=== PATIENT | female | born 1985 | race American Indian/Alaskan Native ===

== ENCOUNTER 2016-03-03 10:37 | Day surgery (SDC) | payer MEDICAID ==
[~2016-03-03 10:37] MED LIST: LACTATED RINGERS 1,000 ML IV SCH; PEPCID PO NR; VERSED IV NR
--- NOTE | 2016-03-03 11:18 | Anesthesia Consultation ---
Anesthesia Consult and Med Hx - Airway Anesthetic Teeth Evaluation: Good ROM Head & Neck: Adequate Mental/Hyoid Distance: Adequate Mallampati Class: Class II Intubation Access Assessment: Good - Pulmonary Exam CTA: Yes - Cardiac Exam Cardiac Exam: RRR - Pre-Operative Health Status ASA Pre-Surgery Classification: ASA2 Proposed Anesthetic Plan: General - Pulmonary Hx Smoking: Yes - Cardiovascular System Hx Heart Murmur: Yes - Central Nervous System Hx Psychiatric Problems: No - Other Systems Hx Alcohol Use: No Hx Substance Use: Yes (marijuana last used 12/2015) Hx Cancer: No - Additional Comments Anesthesia Medical History Comments: NAC
[2016-03-03] MEDS ORDERED: ZOFRAN IV PRN (11:19)
[2016-03-03] MEDS ORDERED: DILAUDID IV PRN (11:19)
[2016-03-03] MEDS ORDERED: DEMEROL IV PRN (11:19)
--- NOTE | 2016-03-03 11:19 | Anesthesia Day of Surgery ---
Anesthesia Day of Surgery - Day of Surgery Patient Examined: Yes Patient H&P Reviewed: Yes Patient is NPO: Yes
--- NOTE | 2016-03-03 11:34 | Short Stay Summary ---
Short Stay Documentation Date of service: 03/03/16 Narrative H&P: C/O: Vaginal bleeding 30-year-old A3 present for the above complaints, claims to have been bleeding 2 weeks, bleeding now reduced to spotting and dark brownish blood. Patient apparently had an embryonic in late January, follow-up ultrasound was negative for pole. HCG quants also falling. A long discussion with patient about above, offered and recommended conservative care. Patient adamantly declines, she wants D&C-" tired of bleeding" Gynhx:Regular cycles Medhx: ?Oral history of irregular heartbeats Sughx: Knee surgery in 2016 Obhx; # 3 (last in 05/2101) Meds:None All:NKDA Fshx:Single, smoker ROS: No cramping, no fever or chills Exam unremmarkable A: Missed AB P: -Will proceed with suction D&C -Discussed risks of surgery in detail including perforation, infection, bleeding possible need for hysterectomy - History Past Medical History: arrhythmia, other (See HPI) Past Surgical History: Other (Knee surgery) Social history: single, smoking, full code, no alcohol abuse, no prescription drug abuse, no IV drug use - Allergies and Medications Current Medications: Allergies No Known Allergies Allergy (Verified 04/17/14 18:05) Home Medications Medication Instructions Recorded Confirmed Last Taken Type No Known Home Medications [No 03/02/16 03/02/16 Unknown History Reported Home Medications] Active Medications Famotidine (Pepcid) 20 mg PO PREOP NR Stop: 03/03/16 23:59 Hydromorphone HCl (Dilaudid) 0.5 mg IV Q10MIN PRN PRN Reason: Pain , Severe (7-10) Stop: 03/06/16 11:20 Lactated Ringer's (Lactated Ringers) 1,000 mls @ 75 mls/hr IV DIRECT MIGUELANGEL Doxycycline Hyclate 100 mg/ (Sodium Chloride) 250 mls @ 250 mls/hr IV Q12HR MIGUELANGEL PRN Reason: Protocol Meperidine HCl (Demerol) 25 mg IV ONCE PRN PRN Reason: Shivering Stop: 03/03/16 11:20 Midazolam HCl (Versed) 2 mg IV PREOP NR Stop: 03/03/16 23:59 Ondansetron HCl (Zofran) 4 mg IV ONCE PRN PRN Reason: Nausea And Vomiting Stop: 03/03/16 11:20 - Physical exam General appearance: no acute distress, obese Lungs: Clear to auscultation Heart: Regular rate, Normal S1, Normal S2 Gastrointestinal: normal, no tenderness, no distended, no masses, no guarding, obese Extremities: no ischemia - Brief post op/procedure progress note Date of procedure: 03/03/16 Pre-op diagnosis: Missed AB Post-op diagnosis: same Procedure: Suction D&C Anesthesia: GETA Findings: Normal parous os, uterus sounded to 8 cm Surgeon: SISSY BONILLA Estimated blood loss: 50-100ml Pathology: list (Products of conception) Specimen disposition: to lab Condition: stable - Hospital course Hospital course: Uncomplicated postoperative course, discharged from PACU in stable condition - Disposition Condition at discharge: Good Disposition: DC/TX INPT REHAB FACILITY - Discharge Diagnoses (1) S/P dilation and curettage Status: Acute (2) Missed Status: Acute Short Stay Discharge Plan Activity: no driving until cleared by PCP (No driving on narcotics), other ( Pelvic rest x 2 weeks) Weight Bearing Status: Weight Bear as Tolerated Diet: regular Follow up with: FORTUNATO RIVER MD [Primary Care Provider] - 7 Days SISSY BONILLA MD [Staff Physician] - 7 Days
[2016-03-03] MEDS ORDERED: DIPRIVAN 10 MG/ML IV ONE (11:49)
[2016-03-03] MEDS ORDERED: DECADRON ONE (11:50)
[2016-03-03] MEDS ORDERED: XYLOCAINE MPF 2% ONE (11:50)
[2016-03-03] MEDS ORDERED: DILAUDID ONE (11:50)
[2016-03-03] MEDS ORDERED: ZOFRAN ONE (11:50)
[2016-03-03 11:51] LABS: Hematocrit 37.7 % (30.3-42.9); Hemoglobin 12.2 gm/dl (10.1-14.3)
[2016-03-03] MEDS ORDERED: DOXYCYCLINE HYCLATE 100 MG in NACL 0.9% 250ML 250 ML IV SCH (13:00)
[2016-03-03] MEDS ORDERED: CYTOTEC VG ONE (13:01)
[2016-03-03] MEDS ORDERED: NACL 0.9% IR ONE (13:01)
[2016-03-03] MEDS ORDERED: NORCO 5/325 PO PRN ×2 (13:14→14:43)
[2016-03-03] MEDS ORDERED: TYLENOL PO PRN (13:14)
[2016-03-03] MEDS ORDERED: MOTRIN PO PRN (13:14)
--- NOTE | 2016-03-03 13:20 | Operative Report ---
Operative Report Operative Report: DATE: 03/03/2016 PREOPERATIVE DIAGNOSIS: Missed AB at ~ 8 weeks POSTOP DIAGNOSIS: Same plus uterus measures 8 weeks NAME OF PROCEDURE: Suction D&C SURGEON: SISSY BONILLA MD SHEET ROLLER OPERATOR: None ANESTHESIA: LMA EBL: Minimal PATHOLOGY SPECIMEN: Products of conception URINE OUTPUT: 100 mL prior to procedure FINDINGS: Parous OS, uterus measures 8 cm DESCRIPTION OF PROCEDURE: Procedure in detail patient taken to the operating room where she was prepped and draped in sterile fashion placed in dorsolithotomy position. A speculum was placed in the vagina and single-tooth was used to grab the anterior lip of the uterus, uterus was serially dilated to a max 31 dilators. Uterus was then sounded to 8 cm. A size 8 suction curet was then advanced into the patient's uterus gently and in no rotary manner the uterus was cleared of all products of conception. Using a sharp curet, all 4 quadrants were sampled with remnant tissue noted. All instruments were then withdrawn to the patient's vagina, patient received 800 g of Cytotec DE and 100 mg doxycycline preop. She tolerated the procedure well and instrument counts were correct 2 she is transferred to PACU in stable condition thank you
--- NOTE | 2016-03-03 13:43 | Post Anesthesia Evaluation ---
- Post Anesthesia Evaluation Patient Participated: Yes Airway Patent: Yes Stable Respiratory Function: Yes Nausea/Vomiting: No Temp > 96.8F: Yes Pain Manageable: Yes Adequeate Hydration: Yes Anesthesia Complications: No Block Receding Appropriately: Not Applicable Patient on Ventilator: No
[2016-03-03 15:13] VITALS: BP 105/55
--- NOTE | 2016-03-03 15:37 | Event Note ---
Date: 03/03/16 Called to the PACU to see patient, she declined ibuprofen wants something stronger. Per patient, she has back issues and has been on Percocet. Previously did not correlate this history. I advised that ibuprofen is the best medication for her procedure, we'll provide her with 10 tablets of hydrocortisone only.
== END 2016-03-03 15:45 | disposition home or self-care (01) ==
LOC: OR 10:37
PROVIDERS: ATTEND Obstetrics & Gynecology Gynecology
DX: O02.1 Missed abortion (principal); F17.210 Nicotine dependence, cigarettes, uncomplicated; F12.90 Cannabis use, unspecified, uncomplicated; Z98.890 Other specified postprocedural states; Z3A.08 8 weeks gestation of pregnancy
CPT/HCPCS: 36415; 59820; 85014; 85018; 86850; 86900; 86901; 88305; J1100; J1170; J2250; J2405; J2590; J2704; J7050; J7120

== ENCOUNTER 2016-04-23 11:58 | Emergency (ER) | payer MEDICAID ==
--- NOTE | 2016-04-23 16:42 | Emergency Department Report ---
Entered by SERGIO PARIS, acting as scribe for SHERRI HYMAN PA. - General Chief Complaint: Upper Respiratory Infection Stated Complaint: SORE THROAT/BACK/LEG PAIN Time Seen by Provider: 04/23/16 14:34 Source: patient Mode of arrival: Ambulatory Limitations: No Limitations - History of Present Illness Initial Comments: 30 year old female presents to the ED for evaluation of sore throat for 3 days. She also reports associated body aches. Flu immunization are not up to date. Patient has sick contact with similar symptoms within the home. Denies N/V, chest pain, and shortness of breath. MD Complaint: sore throat Onset/Timin -: days(s) Severity: moderate Consistency: constant Improves With: nothing Context: sick contacts (daughter has sore throat and cough) Associated Symptoms: myalgias, sore throat. denies: fever, chills, cough, chest pain, nausea, vomiting, diarrhea Treatments Prior to Arrival: "cold medicine" - Related Data Home Medications Medication Instructions Recorded Confirmed Last Taken Naproxen [Naproxen] 500 mg PO BID 03/03/16 03/03/16 03/02/16 07:00 Previous Rx's Medication Instructions Recorded Last Taken Type HYDROcodone/APAP 5-325 [[place] 1 each PO Q6HR PRN #10 tablet 03/03/16 Unknown Rx 5/325] Ibuprofen [Motrin 600 MG tab] 600 mg PO Q8H PRN #30 tablet 03/03/16 Unknown Rx Multivitamin with Iron 1 each PO DAILY #30 tablet 03/03/16 Unknown Rx [Multivitamins with Iron] Amoxicillin [Amoxicillin TAB] 875 mg PO BID #20 tablet 04/23/16 Unknown Rx Naproxen [Naprosyn] 500 mg PO BID #30 tablet 04/23/16 Unknown Rx Allergies Allergy/AdvReac Type Severity Reaction Status Date / Time No Known Allergies Allergy Verified 04/17/14 18:05 ED Past Medical Hx - Past Medical History Hx Headaches / Migraines: Yes Hx HIV: No Additional medical history: vaginal delivery x 4 with one stillborn - Surgical History Additional Surgical History: rt knee surgery 08/29/15 - Social History Smoking Status: Current Every Day Smoker Substance Use Type: Marijuana - Medications Home Medications: Home Medications Medication Instructions Recorded Confirmed Last Taken Type HYDROcodone/APAP 5-325 [[place] 1 each PO Q6HR PRN #10 tablet 03/03/16 Unknown Rx 5/325] Ibuprofen [Motrin 600 MG tab] 600 mg PO Q8H PRN #30 tablet 03/03/16 Unknown Rx Multivitamin with Iron 1 each PO DAILY #30 tablet 03/03/16 Unknown Rx [Multivitamins with Iron] Naproxen [Naproxen] 500 mg PO BID 03/03/16 03/03/16 03/02/16 07:00 History Amoxicillin [Amoxicillin TAB] 875 mg PO BID #20 tablet 04/23/16 Unknown Rx Naproxen [Naprosyn] 500 mg PO BID #30 tablet 04/23/16 Unknown Rx ED Physical Exam - General Limitations: No Limitations General appearance: other (The patient is well-developed and well-nourished. Patient is in NAD.) - Head Head exam: Present: atraumatic, normocephalic - ENT ENT exam: Present: other (minimal nasal congestion) - Expanded ENT Exam Expanded Ear exam: Present: normal external inspection, other (External auditory canals and tympanic membranes clear; hearing grossly intact.) Throat exam: Positive: tonsillar erythema, tonsillomegaly, tonsillar exudate - Neck Neck exam: Present: normal inspection, full ROM. Absent: tenderness, lymphadenopathy - Respiratory Respiratory exam: Present: normal lung sounds bilaterally. Absent: respiratory distress, wheezes - Cardiovascular Cardiovascular Exam: Present: regular rate, normal rhythm - GI/Abdominal GI/Abdominal exam: Present: soft, normal bowel sounds. Absent: distended, tenderness, guarding, rebound - Neurological Exam Neurological exam: Present: alert, oriented X3 - Psychiatric Psychiatric exam: Present: normal affect, normal mood - Skin Skin exam: Present: warm, dry, intact ED Course Vital Signs 04/23/16 12:22 Temperature 98.2 F Pulse Rate 88 Respiratory 18 Rate Blood Pressure 113/72 O2 Sat by Pulse 96 Oximetry ED Medical Decision Making - Lab Data Vital Signs 04/23/16 12:22 Temperature 98.2 F Pulse Rate 88 Respiratory 18 Rate Blood Pressure 113/72 O2 Sat by Pulse 96 Oximetry - Medical Decision Making 30 year old female presents to the ED c/o sore throat and body aches for 3 days. Her rapid strep test is positive. Rapid flu test negative. Patient is in no acute distress at this time. She will be discharged home and is encouraged to follow up with a primary care provider. She will be sent home on amoxicillin, Naprosyn and is encouraged to return to the emergency room for any worsening symptoms. ED Disposition Clinical Impression: Pharyngitis Qualifiers: Pharyngitis/tonsillitis etiology: streptococcus Qualified Code(s): J02.0 - Streptococcal pharyngitis Disposition: DISCHARGED TO HOME OR SELFCARE Is pt being admited?: No Does the pt Need Aspirin: No Condition: Stable Instructions: Strep Throat (ED) Additional Instructions: Follow with primary care provider. Return to the emergency department if symptoms worsen. Prescriptions: Amoxicillin [Amoxicillin TAB] 875 mg PO BID #20 tablet Naproxen [Naprosyn] 500 mg PO BID #30 tablet Referrals: PRIMARY CAREMD [Primary Care Provider] - 3-5 Days [facility] [Outside] - 3-5 Days SHANNAN YIP MD [Staff Physician] - 3-5 Days Forms: Work/School Release Form(ED), Accompanied Note Time of Disposition: 16:39 This documentation as recorded by the RAINA foley REBEKAH,accurately reflects the service I personally performed and the decisions made by BOOGIE rodarte NATASHA, PA.
[2016-04-23 17:32] VITALS: BP 114/67
== END 2016-04-23 17:33 | disposition home or self-care (01) ==
LOC: ED 11:58
DX: J02.0 Streptococcal pharyngitis (principal); G43.909 Migraine, unspecified, not intractable, without status migrainosus; F17.200 Nicotine dependence, unspecified, uncomplicated; F12.10 Cannabis abuse, uncomplicated
CPT/HCPCS: 87400; 87430; 99282

== ENCOUNTER 2016-07-08 15:29 | Emergency (ER) | payer MEDICAID ==
[2016-07-08 16:41] LABS: Basophils % (Auto) 0.3 % (0.0-1.8); Eosinophils % (Auto) 1.6 % (0.0-4.3); Hemoglobin 11.8 gm/dl (10.1-14.3); Mean Corpuscular HGB Conc 33 % (30-34); Mean Corpuscular Hemoglobin 27 pg (28-32); Mean Corpuscular Volume 84 fl (79-97); Platelet Count 244 K/mm3 (140-440); Red Blood Count 4.31 M/mm3 (3.65-5.03); Red Cell Distribution Width 16.5 % (13.2-15.2); White Blood Count 9.6 K/mm3 (4.5-11.0)
--- NOTE | 2016-07-08 19:25 | Ultrasound Report ---
FINAL REPORT EXAM: US OB TRANSVAGINAL HISTORY: bleeding TECHNIQUE: Ultrasound obstetrical transvaginal PRIORS: None. FINDINGS: There is gestational sac present within the uterus. There is a pole present. cardiac activity is identified with heart rate of 169 beats per minute. P[place]oy-rump length is 4.85 centimeters corresponding to estimated gestational age of 11 weeks 4 days with estimated date of delivery January 23, 2017 No evidence for subchorionic hemorrhage. No free-fluid is identified The ovaries are normal in size and echogenicity IMPRESSION: Single live intrauterine gestation estimated at 11 weeks 4 days
--- NOTE | 2016-07-08 19:29 | Ultrasound Report ---
FINAL REPORT EXAM: US OB \T\lt; = 14 WEEKS FETUS HISTORY: bleeding TECHNIQUE: Ultrasound obstetrical transabdominal PRIORS: Correlated with today's transvaginal exam FINDINGS: There is gestational sac within the uterus. pole identified with crown-rump length 4.8 centimeters corresponding to estimated gestational age of 11 weeks 4 days cardiac activity present with heart rate of 169 beats per minute Ovaries demonstrate normal size and echogenicity. IMPRESSION: Single live intrauterine gestation estimated at 11 weeks 4 days
[2016-07-09] MEDS ORDERED: TYLENOL PO ONE (04:55)
--- NOTE | 2016-07-09 04:58 | Emergency Department Report ---
HPI - General Chief Complaint: Vaginal Bleeding Time Seen by Provider: 07/09/16 04:09 - HPI HPI: The patient is a 30-year-old female , EGA 11 weeks, whom presents for evaluation of back pain and abdominal pain. The patient states that she fell 2 days ago secondary to tripping and struck her upper back on the ground. She states that since she has experienced left upper back pain, 5/10 in severity, aching and sore in quality, and exacerbated with movement of the upper back. The patient also complains of bilateral lower abdominal pain for the past one day, mild in severity, cramping in quality, constant since onset, and associated with vaginal bleeding, improved since onset, currently spotting. The patient denies fever, chills, night sweats, chest pain, dyspnea, paresthesia or motor deficit in the arms or legs, diarrhea, blood in the stool, dark tarry stool, dysuria, hematuria, flank pain, vaginal discharge . ED Past Medical Hx - Past Medical History Previous Medical History?: Yes Hx Headaches / Migraines: Yes Hx HIV: No Additional medical history: vaginal delivery x 4 with one stillborn - Surgical History Past Surgical History?: Yes Additional Surgical History: rt knee surgery 08/29/15 - Social History Smoking Status: Current Every Day Smoker Substance Use Type: None - Medications Home Medications: Home Medications Medication Instructions Recorded Confirmed Last Taken Type HYDROcodone/APAP 5-325 [[place] 1 each PO Q6HR PRN #10 tablet 03/03/16 Unknown Rx 5/325] Ibuprofen [Motrin 600 MG tab] 600 mg PO Q8H PRN #30 tablet 03/03/16 Unknown Rx Multivitamin with Iron 1 each PO DAILY #30 tablet 03/03/16 Unknown Rx [Multivitamins with Iron] Naproxen [Naproxen] 500 mg PO BID 03/03/16 03/03/16 03/02/16 07:00 History Amoxicillin [Amoxicillin TAB] 875 mg PO BID #20 tablet 04/23/16 Unknown Rx Naproxen [Naprosyn] 500 mg PO BID #30 tablet 04/23/16 Unknown Rx Acetaminophen/Codeine [Tylenol #3] 1 tab PO Q6H PRN #7 tab 07/09/16 Unknown Rx Pnv95/Ferrous Fumarate/FA 1 each PO QDAY #31 tablet 07/09/16 Unknown Rx [ Vitamin Tablet] ED Review of Systems ROS: Stated complaint: 12 WK PREG /FALL/VAG BLEEDING / Other details as noted in HPI Constitutional: denies: fever ENT: denies: throat or neck pain Respiratory: denies: cough, shortness of breath Cardiovascular: denies: chest pain Endocrine: denies unexplained weight loss or gain Gastrointestinal: reports abdominal pain, nausea Genitourinary: denies: dysuria Musculoskeletal: reports back pain denies: leg swelling Skin: denies: rash Neurological: denies: headache Hematological/Lymphatic: denies: easy bleeding or easy bruising Psych: denies sadness or hopelessness Physical Exam - Physical Exam Vital Signs: Vital Signs 07/08/16 07/09/16 16:07 00:57 Temperature 98.4 F 98.3 F Pulse Rate 78 70 Respiratory 18 20 Rate Blood Pressure 127/77 113/72 O2 Sat by Pulse 100 100 Oximetry Physical Exam: General: well-nourished, well-developed, no acute distress Head: Normocephalic, atraumatic Eyes: normal sclera ENT: Mucous membranes are pink and moist Neck: trachea midline, neck supple, No neck stiffness, no cervical adenopathy Respiratory: Breath sounds equal bilaterally, no wheezing, rales, or rhonchi Cardio: S1 and S2 present, no murmurs, rubs, gallops, capillary refill is brisk Abdomen: Normoactive bowel sounds, soft abdomen, suprapubic and bilateral lower quadrant tenderness to palpation present, no rigidity, no guarding or rebound tenderness Chest WALL/Back: left upper thoracic paraspinal musculature and caudal medial trapezius tenderness to palpation present, no midline cervical or thoracic or lumbar spinous tenderness to palpation, no spinous step-off or obvious deformity , no sensation motor deficit in the arms or legs bilaterally, reflexes 2+ symmetric on DTR testing of the arms and legs bilaterally, no CVA tenderness with percussion Musc: No pitting edema Skin: No rash Neuro: no facial drooping, normal speech Psych: Normal affect ED Course Vital Signs 07/08/16 07/09/16 16:07 00:57 Temperature 98.4 F 98.3 F Pulse Rate 78 70 Respiratory 18 20 Rate Blood Pressure 127/77 113/72 O2 Sat by Pulse 100 100 Oximetry ED Medical Decision Making - Lab Data Result diagrams: 05/31/17 16:28 - Medical Decision Making The patient was seen and examined by myself. The patient is placed on a cardiac cath tech and continuous pulse ox. On initial evaluation, the patient was found to be in no distress. Evaluation orders were placed. The patient is given a tablet of Tylenol for her pain. Lab results revealed positive beta hCG and Rh+ blood type. Ultrasound of the pelvis reveals live intrauterine of 11 weeks EGA. The patient was reevaluated and reported that their symptoms were markedly improved. The patient is stable for discharge with outpatient follow-up. The patient is given follow-up and return instructions. The patient expressed understanding and agreed with the plan. The patient is discharged in stable condition. Critical care attestation.: If time is entered above; I have spent that time in minutes in the direct care of this critically ill patient, excluding procedure time. ED Disposition Clinical Impression: Threatened miscarriage in early , Abdominal pain, acute, bilateral lower quadrant, Acute upper back pain Disposition: DISCHARGED TO HOME OR SELFCARE Is pt being admited?: No Does the pt Need Aspirin: No Condition: Stable Instructions: Threatened Miscarriage (ED), Abdominal Pain in (ED), Back Pain (ED) Prescriptions: Acetaminophen/Codeine [Tylenol #3] 1 tab PO Q6H PRN #7 tab PRN Reason: Pain Pnv95/Ferrous Fumarate/FA [ Vitamin Tablet] 1 each PO QDAY #31 tablet Referrals: [facility] [Provider Group] - 3-5 Days Time of Disposition: 04:55
[2016-07-09 06:01] VITALS: BP 123/88
== END 2016-07-09 06:00 | disposition home or self-care (01) ==
LOC: ED 15:29
DX: O20.0 Threatened abortion (principal); R10.30 Lower abdominal pain, unspecified; M54.6 Pain in thoracic spine; G43.909 Migraine, unspecified, not intractable, without status migrainosus; O99.331 Smoking (tobacco) complicating pregnancy, first trimester; Z3A.11 11 weeks gestation of pregnancy
CPT/HCPCS: 36415; 76801; 76817; 84702; 85025; 86850; 86900; 86901; 99284

== ENCOUNTER 2016-10-05 16:21 | Outpatient (CLI) | payer OTHER ==
[2016-10-05 17:28] VITALS: BP 91/38
[2016-10-05 17:37] LABS: Bacteria,Urine 1+ /HPF (Negative); Bilirubin,Urine NEG (Negative); Blood,Urine NEG (Negative); Ketones,Urine 20 mg/dL (Negative); Leukocyte Esterase,Urine NEG (Negative); Mucus,Urine 2+ /HPF; Nitrite,Urine NEG (Negative); Urobilinogen,Urine < 2.0 mg/dL (<2.0); WBC,Urine < 1.0 /HPF (0.0-6.0)
== END 2016-10-05 17:58 | disposition home or self-care (01) ==
LOC: TRG 16:21
PROVIDERS: ATTEND Obstetrics & Gynecology Gynecology
DX: O47.02 False labor before 37 completed weeks of gestation, second trimester (principal); Z3A.24 24 weeks gestation of pregnancy
CPT/HCPCS: 59025; 81001

== ENCOUNTER 2016-11-30 17:34 | Outpatient (CLI) | payer OTHER ==
[2016-11-30 18:43] LABS: Bacteria,Urine 1+ /HPF (Negative); Bilirubin,Urine NEG (Negative); Blood,Urine NEG (Negative); Ketones,Urine TR mg/dL (Negative); Leukocyte Esterase,Urine LG (Negative); Mucus,Urine FEW /HPF; Nitrite,Urine NEG (Negative); Protein,Urine <15 mg/dL mg/dL (Negative)
[2016-11-30 18:54] VITALS: BP 124/74
== END 2016-11-30 19:00 | disposition home or self-care (01) ==
LOC: TRG 17:34
PROVIDERS: ATTEND Obstetrics & Gynecology
DX: O47.03 False labor before 37 completed weeks of gestation, third trimester (principal); Z3A.32 32 weeks gestation of pregnancy
CPT/HCPCS: 59025; 81001

== ENCOUNTER 2016-12-28 16:58 | Outpatient (CLI) | payer OTHER ==
[2016-12-28] MEDS ORDERED: LACTATED RINGERS 1,000 ML IV ONE (17:05)
[2016-12-28 17:22] VITALS: BP 112/63
[2016-12-28 17:41] LABS: Bacteria,Urine 1+ /HPF (Negative); Mucus,Urine 2+ /HPF
[2016-12-28 17:42] LABS: Bilirubin,Urine NEG (Negative); Blood,Urine SM (Negative); Ketones,Urine NEG (Negative); Leukocyte Esterase,Urine MOD (Negative); Nitrite,Urine NEG (Negative); Protein,Urine <15 mg/dL mg/dL (Negative); Urobilinogen,Urine < 2.0 mg/dL (<2.0)
[2016-12-29] MEDS ORDERED: LACTATED RINGERS 1,000 ML IV SCH (23:45)
[2016-12-29] MEDS ORDERED: ceFAZolin 2 GM in NACL 0.9% 100 ML IV ONE (23:45)
== END 2016-12-28 18:10 | disposition home or self-care (01) ==
LOC: TRG 16:58
PROVIDERS: ATTEND Obstetrics & Gynecology
DX: O47.03 False labor before 37 completed weeks of gestation, third trimester (principal); Z87.891 Personal history of nicotine dependence; Z3A.36 36 weeks gestation of pregnancy
CPT/HCPCS: 81001; J0690

== ENCOUNTER 2016-12-29 22:41 | Outpatient (CLI) | payer OTHER ==
[2016-12-29] MEDS ORDERED: LACTATED RINGERS 500 ML IV ONE (22:44)
[2016-12-29 22:57] VITALS: BP 112/71
[2016-12-29] MEDS ORDERED: LACTATED RINGERS 1,000 ML IV ONE (22:59)
[2016-12-29] MEDS ORDERED: ceFAZolin 2 GM in NACL 0.9% 100 ML IV ONE (23:52)
[2016-12-30] MEDS ORDERED: ceFAZolin 2 GM in NACL 0.9% 100 ML IV ONE (00:10)
== END 2016-12-30 00:40 | disposition home or self-care (01) ==
LOC: TRG 22:41
PROVIDERS: ATTEND Obstetrics & Gynecology
CPT/HCPCS: 59025; 96360 ×2; 96365 ×2; J7120

== ENCOUNTER 2017-04-04 08:29 | Emergency (ER) | payer OTHER ==
[2017-04-04 08:47] VITALS: BP 121/57
--- NOTE | 2017-04-04 10:39 | Emergency Department Report ---
ED Back Pain/Injury HPI - General Chief Complaint: Back Pain/Injury Stated Complaint: BACK PAIN Time Seen by Provider: 04/04/17 10:34 Source: patient Limitations: No Limitations - History of Present Illness Initial Comments: This is a 31-year-old female nontoxic, well nourished in appearance, no acute signs of distress presents to the ED with c/o of back pain 1 day. Patient stated she was at work picking up heavy box and developed a sharp pain that increased over night. Patient denies any trauma to the region. Patient denies any bladder or bowel instability. Patient denies any dysuria, polyuria or hematuria. Patient denies any flank pain. Patient described pain as aching without radiation. Patient denies any chest pain, shortness of breath, fever, chills, nausea, vomiting, headache or stiff neck. He denies any allergies. Past medical history includes chronic headaches. MD Complaint: back pain -: days(s) (1) Similar Symptoms Previously: No Place: work Radiation: none Severity: mild Severity scale (0 -10): 8 Quality: aching Consistency: constant Improves With: immobilization, supine Worsens With: movement Associated Symptoms: denies other symptoms. denies: confusion, weakness, chest pain, numbness, difficulty walking, cough, difficulty urinating, diaphoresis, incontinence, fever/chills, constipation, headaches, abdominal pain, loss of appetite, malaise, nausea/vomiting, rash, seizure, shortness of breath, syncope - Related Data Previous Rx's Medication Instructions Recorded Last Taken Type Pnv No.95/Ferrous Fum/Folic AC 1 each PO QDAY #31 tablet 07/09/16 2 Days Ago Rx [ Vitamin Tablet] ~12/26/16 1 Cyclobenzaprine [Flexeril] 10 mg PO QHS PRN #7 tablet 04/04/17 Unknown Rx Ibuprofen [Motrin] 600 mg PO Q8H PRN #30 tablet 04/04/17 Unknown Rx Allergies Allergy/AdvReac Type Severity Reaction Status Date / Time No Known Allergies Allergy Verified 04/04/17 08:44 ED Review of Systems ROS: Stated complaint: BACK PAIN Other details as noted in HPI Constitutional: denies: chills, fever Eyes: denies: eye pain, eye discharge, vision change ENT: denies: ear pain, throat pain Respiratory: denies: cough, shortness of breath, wheezing Cardiovascular: denies: chest pain, palpitations Endocrine: no symptoms reported Gastrointestinal: denies: abdominal pain, nausea, diarrhea Genitourinary: denies: urgency, dysuria, discharge Musculoskeletal: back pain. denies: joint swelling, arthralgia Skin: denies: rash, lesions Neurological: denies: headache, weakness, paresthesias Psychiatric: denies: anxiety, depression Hematological/Lymphatic: denies: easy bleeding, easy bruising ED Past Medical Hx - Past Medical History Hx Hypertension: No Hx Diabetes: No Hx Deep Vein Thrombosis: No Hx Renal Disease: No Hx Sickle Cell Disease: No Hx Headaches / Migraines: Yes Hx Seizures: No Hx Asthma: No Hx HIV: No Additional medical history: vaginal delivery x 4 with one stillborn - Surgical History Additional Surgical History: rt knee surgery 08/29/15 - Social History Smoking Status: Current Every Day Smoker Substance Use Type: None - Medications Home Medications: Home Medications Medication Instructions Recorded Confirmed Last Taken Type Pnv No.95/Ferrous Fum/Folic AC 1 each PO QDAY #31 tablet 07/09/16 12/28/16 2 Days Ago Rx [ Vitamin Tablet] ~12/26/16 1 Cyclobenzaprine [Flexeril] 10 mg PO QHS PRN #7 tablet 04/04/17 Unknown Rx Ibuprofen [Motrin] 600 mg PO Q8H PRN #30 tablet 04/04/17 Unknown Rx ED Physical Exam - General Limitations: No Limitations General appearance: alert, in no apparent distress - Head Head exam: Present: atraumatic, normocephalic - Eye Eye exam: Present: normal appearance, PERRL, EOMI Pupils: Present: normal accommodation - ENT ENT exam: Present: mucous membranes moist - Neck Neck exam: Present: normal inspection - Respiratory Respiratory exam: Present: normal lung sounds bilaterally. Absent: respiratory distress, wheezes, rales, rhonchi, stridor, chest wall tenderness, accessory muscle use, decreased breath sounds, prolonged expiratory - Cardiovascular Cardiovascular Exam: Present: regular rate, normal rhythm, normal heart sounds. Absent: bradycardia, tachycardia, irregular rhythm, systolic murmur, diastolic murmur, rubs, gallop - GI/Abdominal GI/Abdominal exam: Present: soft, normal bowel sounds. Absent: distended, tenderness, guarding, rebound, rigid, diminished bowel sounds - Extremities Exam Extremities exam: Present: normal inspection, full ROM, normal capillary refill - Back Exam Back exam: Present: normal inspection, full ROM, paraspinal tenderness (left throacic region). Absent: tenderness, CVA tenderness (R), CVA tenderness (L), muscle spasm, vertebral tenderness, rash noted - Expanded Back Exam Expanded Back exam: Absent: saddle anesthesia Back exam: Negative Straight Leg Raising: Left, Right - Neurological Exam Neurological exam: Present: alert, oriented X3, CN II-XII intact, normal gait, reflexes normal - Psychiatric Psychiatric exam: Present: normal affect, normal mood - Skin Skin exam: Present: warm, dry, intact, normal color. Absent: rash ED Course Vital Signs 04/04/17 08:44 Temperature 98.9 F Pulse Rate 67 Respiratory 18 Rate Blood Pressure 121/57 O2 Sat by Pulse 100 Oximetry - Reevaluation(s) Reevaluation #1: 04/04/17 10:39 Patient is speaking in full sentences with no signs of distress noted. ED Medical Decision Making - Medical Decision Making This is a 31-year-old female that presents with muscular back strain. Patient is stable and was examined by me. Patient received Toradol 30 mg IM in the ED which patient stated his symptoms are improving and subsided. Patient is discharged with Motrin and Flexeril and was instructed not to operate any machinery while taking Flexeril due to drowsiness. Patient was also instructed to Follow-up with a primary care doctor in 3-5 days or if symptoms worsen and continue return to emergency room as soon as possible. At time of discharge, the patient does not seem toxic or ill in appearance. No acute signs of distress noted. Patient agrees to discharge treatment plan of care. No further questions noted by the patient. Critical care attestation.: If time is entered above; I have spent that time in minutes in the direct care of this critically ill patient, excluding procedure time. ED Disposition Clinical Impression: Muscle strain of left upper back Qualifiers: Encounter type: initial encounter Qualified Code(s): S29.012A - Strain of muscle and tendon of back wall of thorax, initial encounter Disposition: - TO HOME OR SELFCARE Is pt being admited?: No Does the pt Need Aspirin: No Condition: Stable Instructions: Muscle Strain (ED), Cyclobenzaprine (By mouth), Ibuprofen (By mouth) Additional Instructions: Follow-up with your primary care doctor in 3-5 days or if symptoms worsen such as bladder or bowel stability, chest pain, short of breath, numbness or tingling sensation in extremities, headache, dizziness, visual changes, nausea vomiting, or abdominal pain, return back to emergency room as was possible. Take ibuprofen and Flexeril as prescribed. Do not operate heavy machinery while taking Flexeril due to sedation Prescriptions: Cyclobenzaprine [Flexeril] 10 mg PO QHS PRN #7 tablet PRN Reason: Muscle Spasm Ibuprofen [Motrin] 600 mg PO Q8H PRN #30 tablet PRN Reason: Pain Referrals: PRIMARY CARE, [Primary Care Provider] - 3-5 Days AUSTIN KRISHNAN MD [Staff Physician] - 3-5 Days [facility] [Outside] - [facility] - [facility]-5 Days Forms: Work/School Release Form(ED)
== END 2017-04-04 11:06 | disposition home or self-care (01) ==
LOC: ED 08:29
DX: S29.012A Strain of muscle and tendon of back wall of thorax, initial encounter (principal); F17.200 Nicotine dependence, unspecified, uncomplicated; X58.XXXA Exposure to other specified factors, initial encounter; Y93.89 Activity, other specified; Y92.89 Other specified places as the place of occurrence of the external cause; Y99.8 Other external cause status
CPT/HCPCS: 99282

== ENCOUNTER 2017-04-22 23:00 | Emergency (ER) | payer OTHER ==
[2017-04-22 23:13] VITALS: BP 117/73
[2017-04-23] MEDS ORDERED: MOTRIN PO ONE (03:52)
--- NOTE | 2017-04-23 04:07 | Emergency Department Report ---
- General Chief Complaint: Upper Respiratory Infection Stated Complaint: COLD SX Source: patient Mode of arrival: Ambulatory Limitations: No Limitations - History of Present Illness Initial Comments: 31-year-old -[place] female presents to the emergency room for cold like symptoms and back pain. Patient states that symptoms started last Wednesday. 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 Patient reports that she has a cough no chest pain no shortness of breathing no nausea no vomiting no fever no chills. Patient reports that she took NyQuil. She has taken no pain medication. She has no past medical history currently takes no medication and has no known drug allergies. Patient's primary care provider is [facility] [place]. MD Complaint: cough, sore throat -: days(s) (6), week(s) Severity scale (0 -10): 8 Quality: sharp Consistency: intermittent Improves With: nothing Worsens With: nothing (with cough) Context: sick contacts Associated Symptoms: denies: fever, chills, myalgias, diaphoresis, rhinorrhea, nasal congestion, stiff neck, chest pain, nausea, vomiting, diarrhea, rash - Related Data Previous Rx's Medication Instructions Recorded Last Taken Type Pnv No.95/Ferrous Fum/Folic AC 1 each PO QDAY #31 tablet 07/09/16 2 Days Ago Rx [ Vitamin Tablet] ~12/26/16 1 Cyclobenzaprine [Flexeril] 10 mg PO QHS PRN #7 tablet 04/04/17 Unknown Rx Baclofen [Lioresal] 10 mg PO TID #15 tab 04/23/17 Unknown Rx Ibuprofen [Motrin 600 MG tab] 600 mg PO Q8H PRN #30 tablet 04/23/17 Unknown Rx Ibuprofen [Motrin 800 MG tab] 800 mg PO Q8H PRN #15 tablet 04/23/17 Unknown Rx Allergies Allergy/AdvReac Type Severity Reaction Status Date / Time No Known Allergies Allergy Verified 04/04/17 08:44 ED Review of Systems ROS: Stated complaint: COLD SX Other details as noted in HPI Constitutional: denies: chills, fever Eyes: denies: eye pain, eye discharge, vision change ENT: throat pain. denies: ear pain Respiratory: cough. denies: shortness of breath, wheezing Cardiovascular: denies: chest pain, palpitations Endocrine: no symptoms reported Gastrointestinal: denies: abdominal pain, nausea, diarrhea Genitourinary: denies: urgency, dysuria, discharge Musculoskeletal: back pain. denies: joint swelling, arthralgia Skin: denies: rash, lesions Neurological: denies: headache, weakness, paresthesias Psychiatric: denies: anxiety, depression Hematological/Lymphatic: denies: easy bleeding, easy bruising ED Past Medical Hx - Past Medical History Previous Medical History?: No Hx Hypertension: No Hx Diabetes: No Hx Deep Vein Thrombosis: No Hx Renal Disease: No Hx Sickle Cell Disease: No Hx Headaches / Migraines: Yes Hx Seizures: No Hx Asthma: No Hx HIV: No Additional medical history: vaginal delivery x 4 with one stillborn - Surgical History Past Surgical History?: Yes Additional Surgical History: rt knee surgery 08/29/15 - Social History Smoking Status: Current Every Day Smoker Substance Use Type: None - Medications Home Medications: Home Medications Medication Instructions Recorded Confirmed Last Taken Type Pnv No.95/Ferrous Fum/Folic AC 1 each PO QDAY #31 tablet 07/09/16 12/28/16 2 Days Ago Rx [ Vitamin Tablet] ~12/26/16 1 Cyclobenzaprine [Flexeril] 10 mg PO QHS PRN #7 tablet 04/04/17 Unknown Rx Baclofen [Lioresal] 10 mg PO TID #15 tab 04/23/17 Unknown Rx Ibuprofen [Motrin 600 MG tab] 600 mg PO Q8H PRN #30 tablet 04/23/17 Unknown Rx Ibuprofen [Motrin 800 MG tab] 800 mg PO Q8H PRN #15 tablet 04/23/17 Unknown Rx ED Physical Exam - General Limitations: No Limitations General appearance: alert, in no apparent distress - Head Head exam: Present: atraumatic, normocephalic - Eye Eye exam: Present: normal appearance - ENT ENT exam: Present: mucous membranes moist - Respiratory Respiratory exam: Present: normal lung sounds bilaterally. Absent: respiratory distress - Cardiovascular Cardiovascular Exam: Present: regular rate, normal rhythm. Absent: systolic murmur, diastolic murmur, rubs, gallop - GI/Abdominal GI/Abdominal exam: Present: soft, normal bowel sounds - Extremities Exam Extremities exam: Present: normal inspection - Back Exam Back exam: Present: normal inspection, tenderness, muscle spasm, paraspinal tenderness - Neurological Exam Neurological exam: Present: alert, oriented X3 - Psychiatric Psychiatric exam: Present: normal affect, normal mood - Skin Skin exam: Present: warm, dry, intact, normal color. Absent: rash ED Course Vital Signs 04/22/17 23:10 Temperature 98.6 F Pulse Rate 84 Blood Pressure 117/73 O2 Sat by Pulse 99 Oximetry ED Medical Decision Making - Medical Decision Making Patient has been evaluated by this provider fast track. I have ordered ibuprofen for patient. Discussed the patient DISCHARGED her on ibuprofen and baclofen for her back and Tessalon Perles for cough. Referral to primary care to follow-up within 3-5 days if symptoms persist or gets worse Critical care attestation.: If time is entered above; I have spent that time in minutes in the direct care of this critically ill patient, excluding procedure time. ED Disposition Clinical Impression: Viral syndrome Back pain Qualifiers: Back pain location: thoracic back pain Chronicity: acute Back pain laterality: bilateral Qualified Code(s): M54.6 - Pain in thoracic spine Disposition: DC-01 TO HOME OR SELFCARE Is pt being admited?: No Does the pt Need Aspirin: No Condition: Stable Instructions: Low Back Strain (ED), Acute Low Back Pain (ED), Viral Syndrome ( ED) Additional Instructions: Please take medication as prescribed. Please drink plenty of fluids. Follow- up with the primary care provider. Prescriptions: Baclofen [Lioresal] 10 mg PO TID #15 tab Ibuprofen [Motrin 600 MG tab] 600 mg PO Q8H PRN #30 tablet PRN Reason: Pain Referrals: ALESSIA MACK MD [Primary Care Provider] - 3-5 Days Forms: Work/School Release Form(ED)
== END 2017-04-23 04:26 | disposition home or self-care (01) ==
LOC: ED 23:00
DX: M54.6 Pain in thoracic spine (principal); B34.9 Viral infection, unspecified; G43.909 Migraine, unspecified, not intractable, without status migrainosus
CPT/HCPCS: 99282

== ENCOUNTER 2017-08-09 08:01 | Emergency (ER) | payer OTHER ==
[2017-08-09 08:28] VITALS: BP 120/80
[2017-08-09] MEDS ORDERED: MOTRIN PO ONE (09:01)
--- NOTE | 2017-08-09 09:09 | Emergency Department Report ---
ED General Adult HPI - General Chief complaint: Pain General Stated complaint: PAIN Time Seen by Provider: 08/09/17 08:57 Source: patient Mode of arrival: Ambulatory Limitations: No Limitations - History of Present Illness Initial comments: This is a 31-year-old female nontoxic, well nourished in appearance, no acute signs of distress presents to the ED with c/o of site pain 3 days. Patient states she had a on 01/14/2017 and has been working picking up heavy box and felt pain immediately. She stated that for the past 2 days when she bends over or lift up a box she develops pain. Patient currently stated that pain is not present while laying down in bed. Patient with pain only occurs upon movement in that area. Patient denies any radiation of pain. Patient denies any chest pain, fever, chills, nausea, vomiting and headache, shortness of breath, numbness or tingling. She denies any back pain. Patient denies any urinary symptoms. Patient denies any allergies. Past medical history includes headaches. -: days(s) (3) Radiation: non-radiation Severity scale (0 -10): 3 Quality: aching Consistency: intermittent, now resolved Improves with: none Worsens with: none Associated Symptoms: denies other symptoms. denies: confusion, chest pain, cough, diaphoresis, fever/chills, headaches, loss of appetite, malaise, nausea/ vomiting, rash, seizure, shortness of breath, syncope, weakness - Related Data Previous Rx's Medication Instructions Recorded Last Taken Type Pnv No.95/Ferrous Fum/Folic AC 1 each PO QDAY #31 tablet 07/09/16 2 Days Ago Rx [ Vitamin Tablet] ~12/26/16 1 Cyclobenzaprine [Flexeril] 10 mg PO QHS PRN #7 tablet 04/04/17 Unknown Rx Baclofen [Lioresal] 10 mg PO TID #15 tab 04/23/17 Unknown Rx Ibuprofen [Motrin 600 MG tab] 600 mg PO Q8H PRN #30 tablet 04/23/17 Unknown Rx Ibuprofen [Motrin 800 MG tab] 800 mg PO Q8H PRN #15 tablet 04/23/17 Unknown Rx Cyclobenzaprine [Flexeril] 10 mg PO QHS PRN #14 tablet 08/09/17 Unknown Rx Ibuprofen [Motrin] 600 mg PO Q8H PRN #30 tablet 08/09/17 Unknown Rx Allergies Allergy/AdvReac Type Severity Reaction Status Date / Time No Known Allergies Allergy Verified 04/04/17 08:44 ED Review of Systems ROS: Stated complaint: PAIN Other details as noted in HPI Constitutional: denies: chills, fever Eyes: denies: eye pain, eye discharge, vision change ENT: denies: ear pain, throat pain Respiratory: denies: cough, shortness of breath, wheezing Cardiovascular: denies: chest pain, palpitations Endocrine: no symptoms reported Gastrointestinal: denies: abdominal pain, nausea, diarrhea Genitourinary: denies: urgency, dysuria, discharge Musculoskeletal: denies: back pain, joint swelling, arthralgia Skin: denies: rash, lesions Neurological: denies: headache, weakness, paresthesias Psychiatric: denies: anxiety, depression Hematological/Lymphatic: denies: easy bleeding, easy bruising ED Past Medical Hx - Past Medical History Previous Medical History?: Yes Hx Hypertension: No Hx Diabetes: No Hx Deep Vein Thrombosis: No Hx Renal Disease: No Hx Sickle Cell Disease: No Hx Headaches / Migraines: Yes Hx Seizures: No Hx Asthma: No Hx HIV: No Additional medical history: vaginal delivery x 4 with one stillborn - Surgical History Past Surgical History?: Yes Additional Surgical History: rt knee surgery 08/29/15, - Social History Smoking Status: Current Every Day Smoker Substance Use Type: Alcohol - Medications Home Medications: Home Medications Medication Instructions Recorded Confirmed Last Taken Type Pnv No.95/Ferrous Fum/Folic AC 1 each PO QDAY #31 tablet 07/09/16 12/28/16 2 Days Ago Rx [ Vitamin Tablet] ~12/26/16 1 Cyclobenzaprine [Flexeril] 10 mg PO QHS PRN #7 tablet 04/04/17 Unknown Rx Baclofen [Lioresal] 10 mg PO TID #15 tab 04/23/17 Unknown Rx Ibuprofen [Motrin 600 MG tab] 600 mg PO Q8H PRN #30 tablet 04/23/17 Unknown Rx Ibuprofen [Motrin 800 MG tab] 800 mg PO Q8H PRN #15 tablet 04/23/17 Unknown Rx Cyclobenzaprine [Flexeril] 10 mg PO QHS PRN #14 tablet 08/09/17 Unknown Rx Ibuprofen [Motrin] 600 mg PO Q8H PRN #30 tablet 08/09/17 Unknown Rx ED Physical Exam - General Limitations: No Limitations General appearance: alert, in no apparent distress - Head Head exam: Present: atraumatic, normocephalic - Eye Eye exam: Present: normal appearance - ENT ENT exam: Present: mucous membranes moist - Neck Neck exam: Present: normal inspection - Respiratory Respiratory exam: Present: normal lung sounds bilaterally. Absent: respiratory distress - Cardiovascular Cardiovascular Exam: Present: regular rate, normal rhythm. Absent: systolic murmur, diastolic murmur, rubs, gallop - GI/Abdominal GI/Abdominal exam: Present: soft, normal bowel sounds. Absent: distended, tenderness, guarding, rebound, rigid, diminished bowel sounds - Expanded GI/Abdominal Exam Expanded GI/Abdominal exam: Absent: psoas sign, obturator sign, heel tap sign, Swanson's sign, Rovsing's sign, tenderness at Mcbur[place]'s Point, ascites - Extremities Exam Extremities exam: Present: normal inspection, full ROM, normal capillary refill. Absent: tenderness, pedal edema, joint swelling, calf tenderness - Back Exam Back exam: Present: normal inspection, full ROM. Absent: tenderness, CVA tenderness (R), CVA tenderness (L), muscle spasm, paraspinal tenderness, vertebral tenderness, rash noted - Neurological Exam Neurological exam: Present: alert, oriented X3 - Psychiatric Psychiatric exam: Present: normal affect, normal mood - Skin Skin exam: Present: warm, dry, intact, normal color. Absent: rash ED Course Vital Signs 08/09/17 08:24 Temperature 98.3 F Pulse Rate 70 Respiratory 18 Rate Blood Pressure 120/80 O2 Sat by Pulse 100 Oximetry - Reevaluation(s) Reevaluation #1: 08/09/17 09:10 Patient is speaking in full sentences with no signs of distress noted. ED Medical Decision Making - Medical Decision Making This is a 31-year-old female that presents with pain in the incision site. Patient is stable and was examined by me. Upon examination there is no abdominal tenderness. No pelvic pain. Patient only stated that is aggravated upon taking heavy stuff for movement. I did give patient a Motrin which patient symptoms of pain is improving and subsided. Patient is discharged with Flexeril and Motrin. She was instructed that if this may be muscular pain as she was lifting prior to the symptoms. Patient was instructed not to operate any machinery while taking Flexeril due to possible drowsiness. Patient was referred to Follow-up with a primary care doctor in 3-5 days or if symptoms worsen and continue return to emergency room as soon as possible. At time of discharge, the patient does not seem toxic or ill in appearance. No acute signs of distress noted. Patient agrees to discharge treatment plan of care. No further questions noted by the patient. Critical care attestation.: If time is entered above; I have spent that time in minutes in the direct care of this critically ill patient, excluding procedure time. ED Disposition Clinical Impression: Incisional pain Disposition: DC-01 TO HOME OR SELFCARE Is pt being admited?: No Does the pt Need Aspirin: No Condition: Stable Instructions: Cyclobenzaprine (By mouth), Ibuprofen (By mouth) Additional Instructions: Follow-up with a primary care doctor in 3-5 days or if symptoms worsen and continue return to emergency room as soon as possible. Take ibuprofen and Flexeril as prescribed. Do not operate heavy machinery while taking Flexeril due to sedation Prescriptions: Cyclobenzaprine [Flexeril] 10 mg PO QHS PRN #14 tablet PRN Reason: Muscle Spasm Ibuprofen [Motrin] 600 mg PO Q8H PRN #30 tablet PRN Reason: Pain Referrals: PRIMARY CARE, [Primary Care Provider] - 3-5 Days AUSTIN KRISHNAN MD [Staff Physician] - 3-5 Days [facility] [Outside] - 3-5 Days Forms: Work/School Release Form(ED)
== END 2017-08-09 09:23 | disposition home or self-care (01) ==
LOC: ED 08:01
DX: G89.18 Other acute postprocedural pain (principal); F17.200 Nicotine dependence, unspecified, uncomplicated; Z79.899 Other long term (current) drug therapy
CPT/HCPCS: 99282

== ENCOUNTER 2017-08-15 14:44 | Emergency (ER) | payer OTHER ==
[2017-08-15 14:53] VITALS: BP 143/72
[2017-08-15 15:54] LABS: HCG Qualitative,Urine Negative (Negative)
[2017-08-15 15:55] LABS: Bilirubin,Urine NEG (Negative); Blood,Urine NEG (Negative); Color,Urine Yellow (Yellow); Protein,Urine <15 mg/dL mg/dL (Negative)
--- NOTE | 2017-08-15 21:00 | Emergency Department Report ---
ED Abdominal Pain HPI - General Chief Complaint: Abdominal Pain Stated Complaint: PAIN ON RIGHT LOWER SIDE Time Seen by Provider: 08/15/17 19:35 Source: patient Mode of arrival: Ambulatory Limitations: No Limitations - History of Present Illness Initial Comments: Diagnosis we'll pull muscle. Patient is here for release to go back to work. No distress denies any dysuria or hurts to walk hurts to lift. Patient had a C- section back in January 2017 with her last child and reports since then she is having intermittent pain near her scar. Patient reports that the pain is worse with walking lifting. It is better when she rests. Unfortunately patient's job requires her to lift and move constantly. Patient reports that she was given Flexeril but is not able to take it because it makes her sleepy and when she sleeps at night she takes it but he doesn't benefit her during the day as where she has most of her pain. The patient reports that she is not able to take it during the day because she needs to be able to work and move around. MD Complaint: abdominal pain -: month(s) (2) Location: suprapubic Radiation: none Severity scale (0 -10): 8 Quality: fullness, sharp Consistency: intermittent Improves With: rest Worsens With: movement, other (walking) Associated Symptoms: denies other symptoms Treatments Prior to Arrival: NSAIDs - Related Data Previous Rx's Medication Instructions Recorded Last Taken Type Pnv No.95/Ferrous Fum/Folic AC 1 each PO QDAY #31 tablet 07/09/16 2 Days Ago Rx [ Vitamin Tablet] ~12/26/16 1 Cyclobenzaprine [Flexeril] 10 mg PO QHS PRN #7 tablet 04/04/17 Unknown Rx Baclofen [Lioresal] 10 mg PO TID #15 tab 04/23/17 Unknown Rx Ibuprofen [Motrin 600 MG tab] 600 mg PO Q8H PRN #30 tablet 04/23/17 Unknown Rx Ibuprofen [Motrin 800 MG tab] 800 mg PO Q8H PRN #15 tablet 04/23/17 Unknown Rx Cyclobenzaprine [Flexeril] 10 mg PO QHS PRN #14 tablet 08/09/17 Unknown Rx Ibuprofen [Motrin] 600 mg PO Q8H PRN #30 tablet 08/09/17 Unknown Rx Allergies Allergy/AdvReac Type Severity Reaction Status Date / Time No Known Allergies Allergy Verified 08/15/17 14:49 ED Review of Systems ROS: Stated complaint: PAIN ON RIGHT LOWER SIDE Other details as noted in HPI Respiratory: denies: cough, shortness of breath, wheezing Cardiovascular: denies: chest pain, palpitations Gastrointestinal: abdominal pain (suprapubic at her incision) Skin: denies: rash, lesions Neurological: denies: headache, weakness, paresthesias ED Past Medical Hx - Past Medical History Hx Hypertension: No Hx Diabetes: No Hx Deep Vein Thrombosis: No Hx Renal Disease: No Hx Sickle Cell Disease: No Hx Headaches / Migraines: Yes Hx Seizures: No Hx Asthma: No Hx HIV: No Additional medical history: vaginal delivery x 4 with one stillborn - Surgical History Additional Surgical History: rt knee surgery 08/29/15, - Social History Smoking Status: Current Every Day Smoker Substance Use Type: Marijuana - Medications Home Medications: Home Medications Medication Instructions Recorded Confirmed Last Taken Type Pnv No.95/Ferrous Fum/Folic AC 1 each PO QDAY #31 tablet 07/09/16 12/28/16 2 Days Ago Rx [ Vitamin Tablet] ~12/26/16 1 Cyclobenzaprine [Flexeril] 10 mg PO QHS PRN #7 tablet 04/04/17 Unknown Rx Baclofen [Lioresal] 10 mg PO TID #15 tab 04/23/17 Unknown Rx Ibuprofen [Motrin 600 MG tab] 600 mg PO Q8H PRN #30 tablet 04/23/17 Unknown Rx Ibuprofen [Motrin 800 MG tab] 800 mg PO Q8H PRN #15 tablet 04/23/17 Unknown Rx Cyclobenzaprine [Flexeril] 10 mg PO QHS PRN #14 tablet 08/09/17 Unknown Rx Ibuprofen [Motrin] 600 mg PO Q8H PRN #30 tablet 08/09/17 Unknown Rx ED Physical Exam - General Limitations: No Limitations General appearance: alert, in no apparent distress - Head Head exam: Present: atraumatic, normocephalic - Eye Eye exam: Present: EOMI - ENT ENT exam: Present: mucous membranes moist - Respiratory Respiratory exam: Present: normal lung sounds bilaterally. Absent: respiratory distress - GI/Abdominal GI/Abdominal exam: Present: soft, normal bowel sounds. Absent: distended, tenderness, guarding, rebound, rigid - Expanded GI/Abdominal Exam Expanded GI/Abdominal exam: Absent: obturator sign, heel tap sign, Swanson's sign, tenderness at Mcburney's Point, ascites - Extremities Exam Extremities exam: Present: full ROM - Back Exam Back exam: Present: full ROM - Neurological Exam Neurological exam: Present: alert, oriented X3 - Psychiatric Psychiatric exam: Present: normal affect, normal mood - Skin Skin exam: Present: warm, dry, intact, normal color. Absent: rash ED Course Vital Signs 08/15/17 08/15/17 14:49 21:12 Temperature 98.3 F Pulse Rate 59 L 69 Respiratory 18 17 Rate Blood Pressure 143/72 O2 Sat by Pulse 100 97 Oximetry ED Medical Decision Making - Medical Decision Making Patient has been evaluated by this provider fast track. I discussed the patient that she needs to get support undergarments such as a medium to mild Gwen girl that will give her stomach some support. As patient has a moderate amount of pannus hanging. I discussed the patient she should follow back up with her [facility] if this continues. Critical care attestation.: If time is entered above; I have spent that time in minutes in the direct care of this critically ill patient, excluding procedure time. ED Disposition Clinical Impression: Incisional pain Disposition: DC-01 TO HOME OR SELFCARE Is pt being admited?: No Does the pt Need Aspirin: No Condition: Stable Instructions: Abdominal Pain (ED) Additional Instructions: Please purchase panty girdles to wear for support of her abdomen. Continue with ibuprofen for pain management. Follow up with [facility] which is at [facility]. Referrals: [facility] [Primary Care Provider] - 3-5 Days [facility] [Provider Group] - 3-5 Days Forms: Work/School Release Form(ED)
== END 2017-08-15 21:12 | disposition home or self-care (01) ==
LOC: ED 14:44
DX: R10.30 Lower abdominal pain, unspecified (principal); G43.909 Migraine, unspecified, not intractable, without status migrainosus; F17.200 Nicotine dependence, unspecified, uncomplicated; F12.10 Cannabis abuse, uncomplicated
CPT/HCPCS: 81001; 81025; 99283

== ENCOUNTER 2017-10-16 14:23 | Emergency (ER) | payer OTHER ==
[2017-10-16 14:29] VITALS: BP 117/56
[2017-10-16 15:11] LABS: Bacteria,Urine 4+ /HPF (Negative); Bilirubin,Urine NEG (Negative); Blood,Urine NEG (Negative); Color,Urine Yellow (Yellow); Mucus,Urine FEW /HPF
[2017-10-16 15:13] LABS: HCG Qualitative,Urine Positive (Negative); WBC,Urine > 182.0 /HPF (0.0-6.0)
[2017-10-16] MEDS ORDERED: MACROBID PO ONE (15:19)
[2017-10-16] MEDS ORDERED: ZOFRAN ODT PO ONE (15:23)
--- NOTE | 2017-10-16 15:26 | Emergency Department Report ---
Blank Doc - Documentation Documentation: 31-year-old female presents to Hospital complaining of urinary symptoms for several days. She is having urinary frequency and urgency. Denies dysuria or fever. She cannot remember her last menstrual period. Patient has minimal lower abdominal tenderness on exam. UA reviewed and reveals positive and positive UTI Zofran, Macrobid, labs, ultrasound ordered Midlevel to follow
[2017-10-16 15:43] LABS: Basophils % (Auto) 0.3 % (0.0-1.8); Eosinophils # (Auto) 0.1 K/mm3 (0.0-0.4); Eosinophils % (Auto) 0.9 % (0.0-4.3); Hematocrit 36.9 % (30.3-42.9); Hemoglobin 12.1 gm/dl (10.1-14.3); Lymphocytes # (Auto) 2.9 K/mm3 (1.2-5.4); Lymphocytes % (Auto) 29.8 % (13.4-35.0); Mean Corpuscular HGB Conc 33 % (30-34); Mean Corpuscular Hemoglobin 27 pg (28-32); Mean Corpuscular Volume 83 fl (79-97); Monocytes # (Auto) 0.9 K/mm3 (0.0-0.8); Platelet Count 266 K/mm3 (140-440); Red Blood Count 4.47 M/mm3 (3.65-5.03); Red Cell Distribution Width 16.1 % (13.2-15.2)
--- NOTE | 2017-10-16 17:03 | Ultrasound Report ---
FINAL REPORT EXAM: US OB < = 14 WEEKS FETUS HISTORY: + hcg, lower abd pain TECHNIQUE: Transabdominal grayscale and color-flow imaging of the pelvis was performed Transvaginal study also performed today FINDINGS: The urinary bladder is mildly distended and unremarkable in appearance. The uterus measures 10.4 centimeters x 7.6 centimeters by 6 centimeters and contains an intrauterine gestational sac with yolk sac and pole. Estimated gestational age by measurements of crown-rump length is 8 weeks.. heart rate is measured at 156 beats per minute. The ovaries are not well visualized on the transabdominal study. IMPRESSION: 1. Demonstration of an intrauterine gestational sac with yolk sac and pole with estimated gestational age on the transabdominal study of 8 weeks and heart rate measured at 156 beats per minute. Please see report of transvaginal study also performed today.
--- NOTE | 2017-10-16 17:09 | Ultrasound Report ---
FINAL REPORT EXAM: US OB TRANSVAGINAL HISTORY: + hcg, lower abd pain TECHNIQUE: Transvaginal grayscale, color flow and M-mode imaging of the pelvis. Comparison: Transabdominal study also performed today FINDINGS: The cervix is closed and unremarkable in appearance. The uterus measures 10.7 centimeters x 6.2 centimeters by 7.1 centimeters. There is demonstration of an intrauterine gestational sac with yolk sac and pole. Estimated gestational age by measurements of crown-rump length is 7 weeks 2 days. heart rate is measured at 155 beats per minute. The right ovary measures 4.1 centimeters x 2.4 centimeters by 2.7 centimeters and is unremarkable in appearance. The left ovary measures 2.9 centimeters x 1.9 centimeters x 2.2 centimeters and is unremarkable in appearance. The there appears to be a small amount of free fluid in the cul-de-sac. IMPRESSION: 1. Demonstration of single intrauterine gestation with estimated gestational age of 7 weeks 2 days by measurements of crown-rump length. heart rate is measured at 155 beats per minute. 2. There appears to be a small amount of free fluid in the cul de sac.
--- NOTE | 2017-10-16 17:17 | Emergency Department Report ---
ED Female HPI - General Chief complaint: Abdominal Pain Stated complaint: URINATION ODOR/FEEL SICK Time Seen by Provider: 10/16/17 15:17 Source: patient Mode of arrival: Ambulatory Limitations: No Limitations - History of Present Illness Initial comments: This is a 31-year-old -[place] female who presents with frequency, urgency, and vaginal spotting. Patient states symptoms have been recurrent for several days. Vaginal discharge is white with an older. She is also complaining of nausea without vomiting. Last menstrual period 08/10/2017, A2. There is some suprapubic discomfort associated with symptoms. Patient denies dysuria, frequency, urgency, vaginal bleeding, fever, and low back pain. MD Complaint: vaginal bleeding (light spotting), vaginal discharge (plate is discharged) Onset/Timin -: week(s) Radiation: non-radiating Severity: mild Severity scale (0 -10): 2 Consistency: intermittent Improves with: none Worsens with: urination Are you Now?: No Last Menstrual Period: 08/10/17 EDC: 05/17/18 Associated Symptoms: vaginal discharge, vaginal bleeding (spotting), nausea/ vomiting (nausea w/o vomiting). denies: abdominal pain, fever/chills, headaches , loss of appetite, dysuria, hematuria, rash, seizure, shortness of breath, syncope, weakness - Related Data Sexually active: No : 6 Para: 4 A: 2 Previous Rx's Medication Instructions Recorded Last Taken Type Pnv No.95/Ferrous Fum/Folic AC 1 each PO QDAY #31 tablet 07/09/16 2 Days Ago Rx [ Vitamin Tablet] ~12/26/16 1 Cyclobenzaprine [Flexeril] 10 mg PO QHS PRN #7 tablet 04/04/17 Unknown Rx Baclofen [Lioresal] 10 mg PO TID #15 tab 04/23/17 Unknown Rx Ibuprofen [Motrin 600 MG tab] 600 mg PO Q8H PRN #30 tablet 04/23/17 Unknown Rx Ibuprofen [Motrin 800 MG tab] 800 mg PO Q8H PRN #15 tablet 04/23/17 Unknown Rx Cyclobenzaprine [Flexeril] 10 mg PO QHS PRN #14 tablet 08/09/17 Unknown Rx Ibuprofen [Motrin] 600 mg PO Q8H PRN #30 tablet 08/09/17 Unknown Rx 21/Iron Fu/Folic Acid 1 each PO DAILY #30 tablet 10/16/17 Unknown Rx [ Complete Caplet] metroNIDAZOLE [Flagyl] 500 mg PO Q12HR #14 tab 10/16/17 Unknown Rx Allergies Allergy/AdvReac Type Severity Reaction Status Date / Time No Known Allergies Allergy Verified 08/15/17 14:49 ED Review of Systems ROS: Stated complaint: URINATION ODOR/FEEL SICK Other details as noted in HPI Constitutional: denies: chills, fever Respiratory: denies: cough, shortness of breath, wheezing Cardiovascular: denies: chest pain, palpitations Gastrointestinal: abdominal pain (suprapubic pain), nausea. denies: vomiting, diarrhea, constipation, hematemesis, melena, hematochezia Genitourinary: discharge. denies: urgency, dysuria Musculoskeletal: denies: back pain, joint swelling, arthralgia Neurological: denies: headache, weakness, paresthesias Psychiatric: denies: anxiety, depression ED Past Medical Hx - Past Medical History Previous Medical History?: Yes Hx Hypertension: No Hx Diabetes: No Hx Deep Vein Thrombosis: No Hx Renal Disease: No Hx Sickle Cell Disease: No Hx Headaches / Migraines: Yes Hx Seizures: No Hx Asthma: No Hx HIV: No Additional medical history: vaginal delivery x 4 with one stillborn - Surgical History Past Surgical History?: Yes Additional Surgical History: rt knee surgery 08/29/15, , oral surgery - Social History Smoking Status: Current Every Day Smoker Substance Use Type: None - Medications Home Medications: Home Medications Medication Instructions Recorded Confirmed Last Taken Type Pnv No.95/Ferrous Fum/Folic AC 1 each PO QDAY #31 tablet 07/09/16 12/28/16 2 Days Ago Rx [ Vitamin Tablet] ~12/26/16 1 Cyclobenzaprine [Flexeril] 10 mg PO QHS PRN #7 tablet 04/04/17 Unknown Rx Baclofen [Lioresal] 10 mg PO TID #15 tab 04/23/17 Unknown Rx Ibuprofen [Motrin 600 MG tab] 600 mg PO Q8H PRN #30 tablet 04/23/17 Unknown Rx Ibuprofen [Motrin 800 MG tab] 800 mg PO Q8H PRN #15 tablet 04/23/17 Unknown Rx Cyclobenzaprine [Flexeril] 10 mg PO QHS PRN #14 tablet 08/09/17 Unknown Rx Ibuprofen [Motrin] 600 mg PO Q8H PRN #30 tablet 08/09/17 Unknown Rx 21/Iron Fu/Folic Acid 1 each PO DAILY #30 tablet 10/16/17 Unknown Rx [ Complete Caplet] metroNIDAZOLE [Flagyl] 500 mg PO Q12HR #14 tab 10/16/17 Unknown Rx ED Physical Exam - General Limitations: No Limitations General appearance: alert, in no apparent distress - Respiratory Respiratory exam: Present: normal lung sounds bilaterally. Absent: respiratory distress - Cardiovascular Cardiovascular Exam: Present: regular rate, normal rhythm. Absent: systolic murmur, diastolic murmur, rubs, gallop - GI/Abdominal GI/Abdominal exam: Present: soft, tenderness (suprapubic tenderness on palpation ), normal bowel sounds. Absent: distended, guarding, rebound, rigid, organomegaly, mass - Back Exam Back exam: Present: normal inspection. Absent: CVA tenderness (R), CVA tenderness (L) - Neurological Exam Neurological exam: Present: alert, oriented X3 - Psychiatric Psychiatric exam: Present: normal affect, normal mood - Skin Skin exam: Present: warm, dry, intact, normal color. Absent: rash ED Course Vital Signs 10/16/17 14:25 Temperature 98.1 F Pulse Rate 68 Respiratory 16 Rate Blood Pressure 117/56 O2 Sat by Pulse 100 Oximetry ED Medical Decision Making - Lab Data Result diagrams: 10/16/17 15:29 Lab Results 10/16/17 10/16/17 10/16/17 Range/Units 14:40 15:29 15:29 WBC 9.6 (4.5-11.0) K/mm3 RBC 4.47 (3.65-5.03) M/mm3 Hgb 12.1 (10.1-14.3) gm/dl Hct 36.9 (30.3-42.9) % MCV 83 (79-97) fl MCH 27 L (28-32) pg MCHC 33 (30-34) % RDW 16.1 H (13.2-15.2) % Plt Count 266 (140-440) K/mm3 Lymph % (Auto) 29.8 (13.4-35.0) % [place] % (Auto) 9.0 H (0.0-7.3) % Eos % (Auto) 0.9 (0.0-4.3) % Baso % (Auto) 0.3 (0.0-1.8) % Lymph # 2.9 (1.2-5.4) K/mm3 [place]oup # 0.9 H (0.0-0.8) K/mm3 Eos # 0.1 (0.0-0.4) K/mm3 Baso # 0.0 (0.0-0.1) K/mm3 Seg Neutrophils % 60.0 (40.0-70.0) % Seg Neutrophils # 5.8 (1.8-7.7) K/mm3 HCG, Quant 54932 H (0-4) mIU/mL Urine Color Yellow (Yellow) Urine Turbidity Cloudy (Clear) Urine pH 6.0 (5.0-7.0) Ur Specific [place] 1.019 (1.003-1.030) Urine Protein 30 mg/dl (Negative) mg/dL Urine Glucose (UA) Neg (Negative) mg/dL Urine Ketones Neg (Negative) mg/dL Urine Blood Neg (Negative) Urine Nitrite Neg (Negative) Urine Bilirubin Neg (Negative) Urine Urobilinogen 4.0 (<2.0) mg/dL Ur Leukocyte Esterase Lg (Negative) Urine WBC (Auto) > 182.0 H (0.0-6.0) /HPF Urine RBC (Auto) 9.0 (0.0-6.0) /HPF U Epithel Cells (Auto) 6.0 (0-13.0) /HPF Urine Bacteria (Auto) 4+ (Negative) /HPF Urine WBC Clumps 2+ /HPF Urine Mucus Few /HPF Urine HCG, Qual Positive A (Negative) Blood Type Antibody Screen 10/16/17 Range/Units 15:33 WBC (4.5-11.0) K/mm3 RBC (3.65-5.03) M/mm3 Hgb (10.1-14.3) gm/dl Hct (30.3-42.9) % MCV (79-97) fl MCH (28-32) pg MCHC (30-34) % RDW (13.2-15.2) % Plt Count (140-440) K/mm3 Lymph % (Auto) (13.4-35.0) % [place] % (Auto) (0.0-7.3) % Eos % (Auto) (0.0-4.3) % Baso % (Auto) (0.0-1.8) % Lymph # (1.2-5.4) K/mm3 [place] # (0.0-0.8) K/mm3 Eos # (0.0-0.4) K/mm3 Baso # (0.0-0.1) K/mm3 Seg Neutrophils % (40.0-70.0) % Seg Neutrophils # (1.8-7.7) K/mm3 HCG, Quant (0-4) mIU/mL Urine Color (Yellow) Urine Turbidity (Clear) Urine pH (5.0-7.0) Ur Specific [place] (1.003-1.030) Urine Protein (Negative) mg/dL Urine Glucose (UA) (Negative) mg/dL Urine Ketones (Negative) mg/dL Urine Blood (Negative) Urine Nitrite (Negative) Urine Bilirubin (Negative) Urine Urobilinogen (<2.0) mg/dL Ur Leukocyte Esterase (Negative) Urine WBC (Auto) (0.0-6.0) /HPF Urine RBC (Auto) (0.0-6.0) /HPF U Epithel Cells (Auto) (0-13.0) /HPF Urine Bacteria (Auto) (Negative) /HPF Urine WBC Clumps /HPF Urine Mucus /HPF Urine HCG, Qual (Negative) Blood Type B POSITIVE Antibody Screen Negative - Radiology Data Radiology results: report reviewed, image reviewed FINAL REPORT EXAM: US OB TRANSVAGINAL HISTORY: + hcg, lower abd pain TECHNIQUE: Transvaginal grayscale, color flow and M-mode imaging of the pelvis. Comparison: Transabdominal study also performed today FINDINGS: The cervix is closed and unremarkable in appearance. The uterus measures 10.7 centimeters x 6.2 centimeters by 7.1 centimeters. There is demonstration of an intrauterine gestational sac with yolk sac and pole. Estimated gestational age by measurements of crown-rump length is 7 weeks 2 days. heart rate is measured at 155 beats per minute. The right ovary measures 4.1 centimeters x 2.4 centimeters by 2.7 centimeters and is unremarkable in appearance. The left ovary measures 2.9 centimeters x 1.9 centimeters x 2.2 centimeters and is unremarkable in appearance. The there appears to be a small amount of free fluid in the cul-de-sac. IMPRESSION: 1. Demonstration of single intrauterine gestation with estimated gestational age of 7 weeks 2 days by measurements of crown-rump length. heart rate is measured at 155 beats per minute. 2. There appears to be a small amount of free fluid in the cul de sac. - Medical Decision Making Patient was examined by me and screening by Dr. Webster. Vitals are normal and patient is in no acute distress. Obtained labs. Urine positive for . Wet prep obtained. Pelvic exam, positive clue cells, negative Trichomonas and yeast. Vaginal and OB ultrasound obtained and dictated by radiologist. Report reviewed by myself and patient informed of results. Start metronidazole for bacteria vaginitis and vitamins. Plan discussed with patient to discharge home and treat outpatient. Referral to [facility] for continuous of care. Patient discharged home in stable condition. Critical care attestation.: If time is entered above; I have spent that time in minutes in the direct care of this critically ill patient, excluding procedure time. ED Disposition Clinical Impression: confirmed by positive blood test, Vaginal discharge, Bacterial vaginitis Abdominal pain during Qualifiers: Trimester: first trimester Qualified Code(s): O26.891 - Other specified related conditions, first trimester Disposition: DC-01 TO HOME OR SELFCARE Is pt being admited?: No Does the pt Need Aspirin: No Condition: Stable Instructions: (ED), Bacterial Vaginosis (ED), Abdominal Pain (ED) Additional Instructions: Take vitamins daily. Complete full course of antibiotics as prescribed. Follow up with [facility] in 24-48 hours. Return to ER if increased vaginal bleeding, abdominal pain, and low back pain. Prescriptions: metroNIDAZOLE [Flagyl] 500 mg PO Q12HR #14 tab 21/Iron Fu/Folic Acid [ Complete Caplet] 1 each PO DAILY #30 tablet Referrals: [facility] [Provider Group] - 3-5 Days [facility] [Provider Group] - 3-5 Days Forms: STI Treatment and Prevention Time of Disposition: 18:39 Print Language: BURKINAN
[2017-10-16] MEDS ORDERED: FLAGYL PO ONE (18:45)
== END 2017-10-16 18:54 | disposition home or self-care (01) ==
LOC: ED 14:23
DX: O23.591 Infection of other part of genital tract in pregnancy, first trimester (principal); B96.89 Other specified bacterial agents as the cause of diseases classified elsewhere; G43.909 Migraine, unspecified, not intractable, without status migrainosus; O99.331 Smoking (tobacco) complicating pregnancy, first trimester; Z3A.08 8 weeks gestation of pregnancy
CPT/HCPCS: 36415; 76801; 76817; 81001; 81025; 84702; 85025; 86850; 86900; 86901; 87210; 87591; 99284; Q0162

== ENCOUNTER 2018-05-12 12:59 | Outpatient (CLI) | payer OTHER ==
[2018-05-12] MEDS ORDERED: LACTATED RINGERS 500 ML IV ONE (13:27)
[2018-05-12 13:58] LABS: Bilirubin,Urine NEG (Negative); Blood,Urine NEG (Negative); Color,Urine Yellow (Yellow); Mucus,Urine FEW /HPF; Protein,Urine <15 mg/dL mg/dL (Negative)
[2018-05-12 14:17] LABS: Hematocrit 33.2 % (30.3-42.9); Hemoglobin 10.8 gm/dl (10.1-14.3); Mean Corpuscular HGB Conc 33 % (30-34); Mean Corpuscular Volume 79 fl (79-97); Platelet Count 284 K/mm3 (140-440); Red Cell Distribution Width 16.1 % (13.2-15.2)
[2018-05-12 14:28] LABS: Alanine Aminotransferase 7 units/L (7-56); Uric Acid 3.1 mg/dL (3.5-7.6)
[2018-05-12 19:54] VITALS: BP 99/54
--- NOTE | 2018-05-12 20:39 | Ultrasound Report ---
PROCEDURE: Limited abdominal ultrasound. TECHNIQUE: Imaging was done of the right upper quadrant of the abdomen with image documentation. HISTORY: Right upper quadrant abdominal pain. COMPARISONS: None. FINDINGS: The pancreas is grossly normal. The proximal portion of the abdominal aorta has a normal caliber. The inferior vena cava is patent. The right kidney appears normal in size and has normal echogenicity. T here is no hydronephrosis. The liver has uniform echogenicity without focal masses. The common hepati c duct measures 3.7 mm. The gallbladder is adequately distended with normal wall thickness. There are no gallstones. The portal vein is patent by color flow imaging. IMPRESSION: Normal study. This document is electronically signed by Kyle Mittal MD., May 12 2018 08:37:19 PM ET
== END 2018-05-12 19:56 | disposition home or self-care (01) ==
LOC: TRG 12:59
PROVIDERS: ATTEND Obstetrics & Gynecology
DX: O47.03 False labor before 37 completed weeks of gestation, third trimester (principal); O99.333 Smoking (tobacco) complicating pregnancy, third trimester; Z3A.37 37 weeks gestation of pregnancy
CPT/HCPCS: 36415; 59025; 76705; 81001; 82565; 83615; 84450; 84460; 84550; 85027

== ENCOUNTER 2018-05-19 15:50 | Outpatient (CLI) | payer OTHER ==
[2018-05-19 16:03] VITALS: BP 109/61
== END 2018-05-19 17:21 | disposition home or self-care (01) ==
LOC: TRG 15:50
PROVIDERS: ATTEND Obstetrics & Gynecology
DX: O36.8190 Decreased fetal movements, unspecified trimester, not applicable or unspecified (principal); O13.3 Gestational [pregnancy-induced] hypertension without significant proteinuria, third trimester; Z3A.38 38 weeks gestation of pregnancy
CPT/HCPCS: 59025

== ENCOUNTER 2018-12-14 17:58 | Emergency (ER) | payer SELFPAY ==
--- NOTE | 2018-12-14 18:57 | Event Note ---
ED Screening Note Date of service: 12/14/18 Time: 18:52 ED Screening Note: This is a 33 y.o. F. that presents to the ER with n/v/d, abdominal pain, and headache for 4 days. LMP 12/09/2018 Patient states her son have similar symptoms. This initial assessment/diagnostic orders/clinical plan/treatment(s) is/are subject to change based on patients health status, clinical progression and re- assessment by fellow clinical providers in the ED. Further treatment and workup at subsequent clinical providers discretion. Patient/guardian urged not to elope from the ED as their condition may be serious if not clinically assessed and managed. Initial orders include: Labs and CT of abdomen and pelvis
[2018-12-14 19:35] LABS: Basophils % (Auto) 0.2 % (0.0-1.8); Hematocrit 38.2 % (30.3-42.9); Hemoglobin 12.4 gm/dl (10.1-14.3); Lymphocytes # (Auto) 2.6 K/mm3 (1.2-5.4); Lymphocytes % (Auto) 19.5 % (13.4-35.0); Mean Corpuscular HGB Conc 33 % (30-34); Mean Corpuscular Volume 79 fl (79-97); Monocytes # (Auto) 1.9 K/mm3 (0.0-0.8); Monocytes % (Auto) 14.4 % (0.0-7.3); Platelet Count 319 K/mm3 (140-440); Red Blood Count 4.84 M/mm3 (3.65-5.03); Red Cell Distribution Width 16.4 % (13.2-15.2)
[2018-12-14 19:45] LABS: Alanine Aminotransferase 10 units/L (7-56); Albumin 3.9 g/dL (3.9-5); BUN/Creatinine Ratio 7; Blood Urea Nitrogen 5 mg/dL (7-17); Calcium 8.8 mg/dL (8.4-10.2); Hemolysis Index 8
[2018-12-14 20:26] LABS: Bilirubin,Urine NEG (Negative); Blood,Urine MOD (Negative); Color,Urine Yellow (Yellow); Mucus,Urine 1+ /HPF; Urobilinogen,Urine < 2.0 mg/dL (<2.0)
--- NOTE | 2018-12-14 21:09 | Cat Scan Report ---
CT ABDOMEN AND PELVIS WITH CONTRAST HISTORY: diffuse abdominal pain. COMPARISON: None. TECHNIQUE: CT images of the abdomen and pelvis were obtained following administration of intravenous contrast. All CT scans at this location are performed using CT dose reduction for ALARA by means of automated exposure control. CONTRAST: 100 ml of intravenous contrast administered. FINDINGS: Lungs/bones: Lung bases are clear. No acute osseous abnormality identified. There is sclerosis along the ilial side of both SI joints as may be seen with spondyloarthropathies or inflammatory bowel dis ease. No erosions identified. Abdomen/pelvis: The liver, gallbladder, spleen, pancreas, adrenals, kidneys, and proximal GI tract a ppear unremarkable. The colon is diffusely abnormal with wall thickening along its entire course which is circumferential . No bowel obstruction identified multiple shotty mesenteric lymph nodes are also present which are m ost likely reactive. There is no free air or abscess formation to suggest perforation. There is trace pelvic free fluid which can be normal and a woman of this age. Urinary bladder is unremarkable. Reproductive organs are also normal. IMPRESSION: 1. Moderate pancolitis. Given bony findings as above, consider IBD such as ulcerative colitis. Signer Name: Cruz Smith MD Signed: 12/14/2018 9:05 PM Workstation Name: [id number]
--- NOTE | 2018-12-14 21:11 | Emergency Department Report ---
Vomiting/Diarrhea - HPI Chief Complaint: Nausea/Vomiting/Diarrhea Stated Complaint: LOWER BACK PAIN/STOMACH VIRUS/WEAKNESS Time Seen by Provider: 12/14/18 18:52 Duration: 5 Days Severity: moderate Nausea/Vomiting Severity: Mild Diarrhea Severity: Moderate Pain Location: Generalized (results now) Pain Severity: None Symptoms: Yes Watery Diarrhea, Yes Fever, Yes Able to Tolerate Fluids, Yes Cont acts w/ Similar Symptoms (son), No Bloody diarrhea, No Recent Unusual Foods, No Recent Untreated Water, No Recent use of Antibiotics, No Family w/ Similar Symptoms, No Rash, No Hematuria, No Recent URI Symptoms Other History: Is a 33-year-old female presents to ED complaining of episodes of vomiting and diarrhea and body aches for the past 5 days. She states about 5 days ago she was exposed to some parasitic bathwater. Patient states that she is had watery loose stools for the past 5 days. Patient states initially began with the abdominal cramping that has not resolved. She states vomiting is resolved and she is able to eat and drink fluids. ED Review of Systems ROS: Stated complaint: LOWER BACK PAIN/STOMACH VIRUS/WEAKNESS Other details as noted in HPI Comment: All other systems reviewed and negative ED Past Medical Hx - Past Medical History Previous Medical History?: Yes Hx Hypertension: No Hx Congestive Heart Failure: No Hx Diabetes: No Hx Deep Vein Thrombosis: No Hx Renal Disease: No Hx Sickle Cell Disease: No Hx Headaches / Migraines: Yes Hx Seizures: No Hx Asthma: No Hx COPD: No Hx HIV: No Additional medical history: vaginal delivery x 4 with one stillborn - Surgical History Past Surgical History?: Yes Additional Surgical History: rt knee surgery 08/29/15, , oral surgery - Social History Smoking Status: Never Smoker Substance Use Type: None - Medications Home Medications: Home Medications Medication Instructions Recorded Confirmed Last Taken Type Ibuprofen [Motrin] 800 mg PO Q8HR PRN #30 tablet 05/24/18 Unknown Rx oxyCODONE /ACETAMINOPHEN [Percocet 1 tab PO Q4HR #14 tab 05/24/18 Unknown Rx 5/325] Ferrous Sulfate [Feosol 325 MG tab] 325 mg PO BID #60 tablet 05/27/18 Unknown Rx Vit-Fe Fumar-FA [ 1 each PO QDAY #30 tablet 05/27/18 Unknown Rx Vitamin] oxyCODONE /ACETAMINOPHEN [Percocet 1 tab PO Q6HR PRN #30 tablet 05/27/18 Unknown Rx 5/325 mg] Dicyclomine [Bentyl] 10 mg PO TID #20 capsule 12/14/18 Unknown Rx Ondansetron [Zofran ODT TAB] 8 mg PO Q12HR #20 tab.rapdis 12/14/18 Unknown Rx metroNIDAZOLE [Flagyl TAB] 500 mg PO Q12HR #14 tab 12/14/18 Unknown Rx Vomiting Diarrhea Exam - Exam General: Vital signs noted. No distress. Alert and acting appropriately. HEENT: Yes Moist Mucous Membranes, No Pharyngeal Erythema, No Pharyngeal Exudates, No Rhinorrhea, No Conjuctival Injection, No Frontal Tenderness, No Maxillary Tenderness Neck: No Adenopathy, No Rigidity Lungs: Yes Clear Lung Sounds, Yes Good Air Exchange, No Wheezes, No Stridor, No Cough, No Nasal Flaring, No Retractions, No Use of Accessory Muscles Heart exam: Regular: Yes, Murmur: No, Tachycardia: No Abdomen: Tenderness: No, Peritoneal Signs: No, Distention: No, Hyperactive Bowel sounds: No Skin exam: Rash: No, Edema: No, Normal turgor: Yes Neurologic: Alert and oriented, no deficits. Musculoskeletal: Unremarkable. ED Course Vital Signs 12/14/18 18:54 Temperature 100.3 F H Pulse Rate 108 H Respiratory 20 Rate Blood Pressure 122/82 O2 Sat by Pulse 98 Oximetry ED Medical Decision Making - Lab Data Result diagrams: 12/14/18 19:03 12/14/18 19:03 Laboratory Tests 12/14/18 12/14/18 12/14/18 19:03 19:03 19:03 WBC 13.4 H RBC 4.84 Hgb 12.4 Hct 38.2 MCV 79 MCH 26 L MCHC 33 RDW 16.4 H Plt Count 319 Lymph % (Auto) 19.5 [place] % (Auto) 14.4 H Eos % (Auto) 0.0 Baso % (Auto) 0.2 Lymph # 2.6 [place] # 1.9 H Eos # 0.0 Baso # 0.0 Seg Neutrophils % 65.9 Seg Neutrophils # 8.9 H Sodium 137 Potassium 3.0 L Chloride 101.2 Carbon Dioxide 20 L Anion Gap 19 BUN 5 L Creatinine 0.7 Estimated GFR > 60 BUN/Creatinine Ratio 7 Glucose 108 H Calcium 8.8 Total Bilirubin 0.30 AST 15 ALT 10 Alkaline Phosphatase 93 Total Protein 8.1 Albumin 3.9 Albumin/Globulin Ratio 0.9 Lipase 24 HCG, Qual Negative Urine Color Urine Turbidity Urine pH Ur Specific [place] Urine Protein Urine Glucose (UA) Urine Ketones Urine Blood Urine Nitrite Urine Bilirubin Urine Urobilinogen Ur Leukocyte Esterase Urine WBC (Auto) Urine RBC (Auto) U Epithel Cells (Auto) Urine Mucus 12/14/18 19:43 WBC RBC Hgb Hct MCV MCH MCHC RDW Plt Count Lymph % (Auto) [place] % (Auto) Eos % (Auto) Baso % (Auto) Lymph # [place] # Eos # Baso # Seg Neutrophils % Seg Neutrophils # Sodium Potassium Chloride Carbon Dioxide Anion Gap BUN Creatinine Estimated GFR BUN/Creatinine Ratio Glucose Calcium Total Bilirubin AST ALT Alkaline Phosphatase Total Protein Albumin Albumin/Globulin Ratio Lipase HCG, Qual Urine Color Yellow Urine Turbidity Slightly-cloudy Urine pH 6.0 Ur Specific [place] 1.015 Urine Protein 30 mg/dl Urine Glucose (UA) Neg Urine Ketones Tr Urine Blood Mod Urine Nitrite Neg Urine Bilirubin Neg Urine Urobilinogen < 2.0 Ur Leukocyte Esterase Neg Urine WBC (Auto) 4.0 Urine RBC (Auto) 9.0 U Epithel Cells (Auto) 9.0 Urine Mucus 1+ Vital Signs 12/14/18 12/14/18 12/14/18 18:54 22:11 22:39 Temperature 100.3 F H Pulse Rate 108 H Respiratory 20 20 18 Rate Blood Pressure 122/82 Blood Pressure [Right] O2 Sat by Pulse 98 Oximetry 12/14/18 23:25 Temperature 98.7 F Pulse Rate 79 Respiratory 17 Rate Blood Pressure Blood Pressure 101/52 [Right] O2 Sat by Pulse 100 Oximetry - Radiology Data Radiology results: report reviewed, image reviewed CT ABDOMEN AND PELVIS WITH CONTRAST HISTORY: diffuse abdominal pain. COMPARISON: None. TECHNIQUE: CT images of the abdomen and pelvis were obtained following adm inistration of intravenous contrast. All CT scans at this location are performed using CT dose reduction for ALARA by means of automated exposure control. CONTRAST: 100 ml of intravenous contrast administered. FINDINGS: Lungs/bones: Lung bases are clear. No acute osseous abnormality identified. T here is sclerosis along the ilial side of both SI joints as may be seen with spondyloarthropathies or inflammatory bowel disease. No erosions identified. Abdomen/pelvis: The liver, gallbladder, spleen, pancreas, adrenals, kidneys, and proximal GI tract appear unremarkable. The colon is diffusely abnormal with wall thickening along its entire course which is circumferential. No bowel obstruction identified multiple shotty mesenteric lymph nodes are also present which are most likely reactive. There is no free air or abscess formation to suggest perforation. There is trace pelvic free fluid which can be normal and a woman of this age. Urinary bladder is unremarkable. Reproductive organs are also normal. IMPRESSION: 1. Moderate pancolitis. Given bony findings as above, consider IBD such as ulcerative colitis. Signer Name: Cruz Smith MD Signed: 12/14/2018 9:05 PM Workstation Name: [id number] Transcribed By: BIN Dictated By: Cruz Smith MD Electronically Authenticated By: Cruz Smith MD Signed Date/Time: 12/14/18 6628 - Medical Decision Making This 33-year-old female presents with acute viral gastroenteritis vs colitis. CBC has a mildly elevated white count, all other labs findings are within normal limits. Patient received 1 L of fluids, Toradol, Zofran, Bentyl in the ED. CT scan of the abdomen shows the report above Patient reports: reports feeling better. Discussed all lab findings with the patient. Vital signs normalize prior to leaving the ED. Discussed follow-up with the primary care physician. Discussed the proper diet with the patient. Discussed the patient wanted to follow-up with a gastroenteritis. Reduced fever She is in no acute distress. Critical care attestation.: If time is entered above; I have spent that time in minutes in the direct care of this critically ill patient, excluding procedure time. ED Disposition Clinical Impression: Acute gastroenteritis Disposition: DC-01 TO HOME OR SELFCARE Is pt being admited?: No Does the pt Need Aspirin: No Condition: Stable Instructions: Traveler's Diarrhea (ED), Gastroenteritis (ED), Acute Nausea and Vomiting (ED) Additional Instructions: Make sure to follow up with the primary care physician as discussed. Take all your medications as you've been prescribed. If you have any worsening symptoms or develop new symptoms please return to ED immediately. Prescriptions: Dicyclomine [Bentyl] 10 mg PO TID #20 capsule metroNIDAZOLE [Flagyl TAB] 500 mg PO Q12HR #14 tab Ondansetron [Zofran ODT TAB] 8 mg PO Q12HR #20 tab.rapdis Referrals: PRIMARY CARE,MD [Primary Care Provider] - 3-5 Days [facility] [Provider Group] - 3-5 Days Forms: Accompanied Note, Work/School Release Form(ED) Time of Disposition: 23:23
[2018-12-14] MEDS ORDERED: FAMOTIDINE 20 MG/2 ML INJ IV ONE (21:15)
[2018-12-14] MEDS ORDERED: SODIUM CHLORIDE 0.9% 1000 ML 1,000 ML IV ONE (21:15)
[2018-12-14] MEDS ORDERED: ONDANSETRON 4 MG/2 ML INJ IV ONE (21:15)
[2018-12-14] MEDS ORDERED: KETOROLAC 30 MG/1 ML INJ IV ONE (21:54)
[2018-12-14] MEDS ORDERED: DICYCLOMINE 10 MG CAP PO ONE (22:00)
[2018-12-14 23:26] VITALS: BP 101/52
== END 2018-12-14 23:50 | disposition home or self-care (01) ==
LOC: ED 17:58
DX: K52.9 Noninfective gastroenteritis and colitis, unspecified (principal); Z98.890 Other specified postprocedural states; Z79.1 Long term (current) use of non-steroidal anti-inflammatories (NSAID); Z79.899 Other long term (current) drug therapy
CPT/HCPCS: 36415; 74177; 80053; 81001; 83690; 84703; 85025; 96361; 96374; 96375; 99284; J1885; J2405; J7030; Q9967

== ENCOUNTER 2019-12-16 22:10 | Emergency (ER) | payer SELFPAY ==
[2019-12-16] MEDS ORDERED: SODIUM CHLORIDE 0.9% 1000 ML 1,000 ML IV ONE ×2 (22:32→23:01)
[2019-12-16] MEDS ORDERED: ONDANSETRON 4 MG/2 ML INJ IV ONE (22:32)
--- NOTE | 2019-12-16 22:32 | Emergency Department Report ---
ED Alcohol HPI - General Chief Complaint: Alcohol Stated Complaint: ETOH Time Seen by Provider: 12/16/19 22:27 Source: patient, EMS, old records reviewed Mode of arrival: Stretcher Limitations: Altered Mental Status - History of Present Illness Initial Comments: Chief complaint: "I drank a lot." HPI: This is a 34-year-old female with previous history of suicide attempt who presents with erratic behavior after drinking copious amount of alcohol. Patient states that she drank too much alcohol in order to "pass out". Her children informed her that her father said very hurtful things about her. She became quite upset after hearing this information from her children. She states that she does not drink daily. As a child she attempted to commit suicide. As a teenager she did cut herself often. She has not received a formal diagnosis of mental health disorder. She has had a previous thoughts of suicide. She currently denies suicidal or homicidal ideation. Family members called EMS because she was paranoid and acting erratically. MD Complaint: alcohol intoxication Chronic Alcohol Use: No Previous Visits for Alcohol Intoxication?: No Associated Symptoms: depression, other Treatments Prior to Arrival: other (IV fluids given per EMS) - Related Data Previous Rx's Medication Instructions Recorded Last Taken Type Ibuprofen [Motrin] 800 mg PO Q8HR PRN #30 tablet 05/24/18 Unknown Rx oxyCODONE /ACETAMINOPHEN [Percocet 1 tab PO Q4HR #14 tab 05/24/18 Unknown Rx 5/325] Ferrous Sulfate [Feosol 325 MG tab] 325 mg PO BID #60 tablet 05/27/18 Unknown Rx Vit-Fe Fumar-FA [ 1 each PO QDAY #30 tablet 05/27/18 Unknown Rx Vitamin] oxyCODONE /ACETAMINOPHEN [Percocet 1 tab PO Q6HR PRN #30 tablet 05/27/18 Unknown Rx 5/325 mg] Dicyclomine [Bentyl] 10 mg PO TID #20 capsule 12/14/18 Unknown Rx Ondansetron [Zofran ODT TAB] 8 mg PO Q12HR #20 tab.rapdis 12/14/18 Unknown Rx metroNIDAZOLE [Flagyl TAB] 500 mg PO Q12HR #14 tab 12/14/18 Unknown Rx Allergies Allergy/AdvReac Type Severity Reaction Status Date / Time No Known Allergies Allergy Verified 08/15/17 14:49 ED Review of Systems ROS: Stated complaint: ETOH Other details as noted in HPI Comment: All other systems reviewed and negative Respiratory: denies: cough, shortness of breath Gastrointestinal: denies: abdominal pain, nausea, vomiting ED Past Medical Hx - Past Medical History Previous Medical History?: Yes Hx Hypertension: No Hx Congestive Heart Failure: No Hx Diabetes: No Hx Deep Vein Thrombosis: No Hx Renal Disease: No Hx Sickle Cell Disease: No Hx Headaches / Migraines: Yes Hx Seizures: No Hx Asthma: No Hx COPD: No Hx HIV: No Additional medical history: vaginal delivery x 4 with one stillborn - Surgical History Additional Surgical History: rt knee surgery 08/29/15, , oral surgery - Social History Smoking Status: Never Smoker Substance Use Type: None - Medications Home Medications: Home Medications Medication Instructions Recorded Confirmed Last Taken Type Ibuprofen [Motrin] 800 mg PO Q8HR PRN #30 tablet 05/24/18 Unknown Rx oxyCODONE /ACETAMINOPHEN [Percocet 1 tab PO Q4HR #14 tab 05/24/18 Unknown Rx 5/325] Ferrous Sulfate [Feosol 325 MG tab] 325 mg PO BID #60 tablet 05/27/18 Unknown Rx Vit-Fe Fumar-FA [ 1 each PO QDAY #30 tablet 05/27/18 Unknown Rx Vitamin] oxyCODONE /ACETAMINOPHEN [Percocet 1 tab PO Q6HR PRN #30 tablet 05/27/18 Unknown Rx 5/325 mg] Dicyclomine [Bentyl] 10 mg PO TID #20 capsule 12/14/18 Unknown Rx Ondansetron [Zofran ODT TAB] 8 mg PO Q12HR #20 tab.rapdis 12/14/18 Unknown Rx metroNIDAZOLE [Flagyl TAB] 500 mg PO Q12HR #14 tab 12/14/18 Unknown Rx ED Physical Exam - General Limitations: Altered Mental Status General appearance: alert, in no apparent distress, other (Tearful upset crying but cooperative with history) - Head Head exam: Present: atraumatic, normocephalic - Eye Eye exam: Present: normal appearance - ENT ENT exam: Present: mucous membranes moist - Neck Neck exam: Present: normal inspection - Respiratory Respiratory exam: Present: normal lung sounds bilaterally. Absent: respiratory distress, wheezes, rales, rhonchi - Cardiovascular Cardiovascular Exam: Present: regular rate, normal rhythm, normal heart sounds. Absent: systolic murmur, diastolic murmur, rubs, gallop - GI/Abdominal GI/Abdominal exam: Present: soft, normal bowel sounds. Absent: distended, tenderness, guarding, rebound - Extremities Exam Extremities exam: Present: normal inspection - Neurological Exam Neurological exam: Present: alert, oriented X3 - Psychiatric Psychiatric exam: Present: normal affect, depressed - Skin Skin exam: Present: warm, dry, intact, normal color. Absent: rash ED Course Vital Signs 12/16/19 12/16/19 12/16/19 22:45 22:47 23:00 Temperature 98.3 F Pulse Rate 74 Respiratory 18 Rate Blood Pressure 117/76 Blood Pressure 115/69 [Left] O2 Sat by Pulse 100 96 99 Oximetry 12/16/19 23:16 Temperature Pulse Rate Respiratory Rate Blood Pressure 110/81 Blood Pressure [Left] O2 Sat by Pulse 99 Oximetry ED Medical Decision Making - Medical Decision Making Ms. Childs presents with acute alcohol intoxication complicated by acute depression with family social stressors. She currently denies suicidal ideation. After 7 hours observation, she is now awake sober. She is ambulatory without difficulty. She tolerated juice and water. IV diphenhydramine was given upon arrival to address mild headache and nausea. Ms. Childs is discharged home. Encouraged follow-up with outpatient physician. Critical care attestation.: If time is entered above; I have spent that time in minutes in the direct care of this critically ill patient, excluding procedure time. ED Disposition Clinical Impression: Acute alcohol intoxication Disposition: DC-01 TO HOME OR SELFCARE Is pt being admited?: No Does the pt Need Aspirin: No Condition: Stable Instructions: Binge-Drinking Information, Adult Referrals: KERRY NITEO MD [Staff Physician] - 3-5 Days
[2019-12-16] MEDS ORDERED: diphenhydrAMINE 50 MG/ML VIAL IV ONE (23:01)
[2019-12-17 06:26] VITALS: BP 110/78
== END 2019-12-17 06:26 | disposition home or self-care (01) ==
LOC: ED 22:10
DX: F10.929 Alcohol use, unspecified with intoxication, unspecified (principal); G43.909 Migraine, unspecified, not intractable, without status migrainosus; Z79.899 Other long term (current) drug therapy; Z98.890 Other specified postprocedural states
CPT/HCPCS: 96361; 96374; 96375; 99284; J1200; J2405; J7030

== ENCOUNTER 2020-02-08 07:39 | Emergency (ER) | payer SELFPAY ==
[2020-02-08 08:32] VITALS: BP 141/85
[2020-02-08] MEDS ORDERED: dexAMETHasone 20 MG/5 ML VIAL IM ONE (09:32)
--- NOTE | 2020-02-08 09:55 | Emergency Department Report ---
Minor Respiratory - HPI Chief Complaint: Sore Throat Stated Complaint: SORE THROAT Time Seen by Provider: 02/08/20 09:32 Duration: 3 Days Pain Location: Throat Severity: moderate Minor Respiratory: Yes Rhinorrhea, Yes Sore Throat, Yes Able to Tolerate Fluids, Yes Ear Pain, No Cough, No Sick Contacts, No Hemoptysis, No Chest Pain, No Shortness of Breath, No Fever Other History: Patient with sore throat, difficulty swallowing, congestion for the past few days, no fever. ED Review of Systems ROS: Stated complaint: SORE THROAT Other details as noted in HPI Comment: All other systems reviewed and negative ENT: as per HPI ED Past Medical Hx - Past Medical History Hx Hypertension: No Hx Congestive Heart Failure: No Hx Diabetes: No Hx Deep Vein Thrombosis: No Hx Renal Disease: No Hx Sickle Cell Disease: No Hx Headaches / Migraines: Yes Hx Seizures: No Hx Asthma: No Hx COPD: No Hx HIV: No Additional medical history: vaginal delivery x 4 with one stillborn - Surgical History Additional Surgical History: rt knee surgery 08/29/15, , oral surgery - Social History Smoking Status: Never Smoker Substance Use Type: None - Medications Home Medications: Home Medications Medication Instructions Recorded Confirmed Last Taken Type Ibuprofen [Motrin] 800 mg PO Q8HR PRN #30 tablet 05/24/18 Unknown Rx oxyCODONE /ACETAMINOPHEN [Percocet 1 tab PO Q4HR #14 tab 05/24/18 Unknown Rx 5/325] Ferrous Sulfate [Feosol 325 MG tab] 325 mg PO BID #60 tablet 05/27/18 Unknown Rx Vit-Fe Fumar-FA [ 1 each PO QDAY #30 tablet 05/27/18 Unknown Rx Vitamin] oxyCODONE /ACETAMINOPHEN [Percocet 1 tab PO Q6HR PRN #30 tablet 05/27/18 Unknown Rx 5/325 mg] Dicyclomine [Bentyl] 10 mg PO TID #20 capsule 12/14/18 Unknown Rx Ondansetron [Zofran ODT TAB] 8 mg PO Q12HR #20 tab.rapdis 12/14/18 Unknown Rx metroNIDAZOLE [Flagyl TAB] 500 mg PO Q12HR #14 tab 12/14/18 Unknown Rx Amoxicillin/Potassium Clav 1 each PO BID #20 tablet 02/08/20 Unknown Rx [Augmentin 875-125 Tablet] Prednisone [predniSONE 10 mg 10 mg PO .TAPER #1 tab.ds.pk 02/08/20 Unknown Rx (6-Day Pack, 21 Tabs)] Minor Respiratory Exam - Exam General: Vital signs noted. No distress. Alert and acting appropriately. HEENT: Yes Pharyngeal Erythema (Mild edema but no evidence of abscess), Yes Moist Mucous Membranes, Yes Rhinorrhea, No Pharyngeal Exudates, No Conjuctival Injection, No Frontal Tenderness, No Maxillary Tenderness Ear: Left TM Bulge, Left TM Erythema, Neither EAC Pain, Neither EAC Discharge Neck: Yes Adenopathy, Yes Supple Lungs: Yes Good Air Exchange, No Wheezes, No [place], No Stridor, No Cough, No Labored Respirations, No Retractions, No Use of Accessory Muscles, No Other Abnormal Lung Sounds Heart: Yes Regular, No Murmur Abdomen: Yes Normal Bowel Sounds, No Tenderness, No Peritoneal Signs Skin: No Rash, No Edema Neurologic: Alert and oriented, no deficits. Musculoskeletal: Unremarkable. ED Course Vital Signs 02/08/20 08:30 Temperature 98.4 F Pulse Rate 73 Respiratory 18 Rate Blood Pressure 141/85 O2 Sat by Pulse 95 Oximetry ED Medical Decision Making - Radiology Data Radiology results: report reviewed Lateral neck film negative - Medical Decision Making Patient with sore throat and congestion for the past few days. States she is having difficulty swallowing. On my exam there is some mild oropharyngeal edema, no evidence of abscess, no exudate. We will give Decadron. She does have evidence of otitis media so will be discharged on antibiotics therefore we will defer strep test. No trismus, uvula midline. - Differential Diagnosis Strep, viral, OM, epiglottitis Critical care attestation.: If time is entered above; I have spent that time in minutes in the direct care of this critically ill patient, excluding procedure time. ED Disposition Clinical Impression: Pharyngitis Qualifiers: Pharyngitis/tonsillitis etiology: unspecified etiology Qualified Code(s): J02.9 - Acute pharyngitis, unspecified Otitis media Qualifiers: Otitis media type: unspecified Chronicity: acute Qualified Code(s): H66.90 - Otitis media, unspecified, unspecified ear Disposition: - TO HOME OR SELFCARE Is pt being admited?: No Condition: Good Instructions: Otitis Media, Adult, [id number], Viral Respiratory Infection, [id number], Sore Throat, [id number] Prescriptions: Amoxicillin/Potassium Clav [Augmentin 875-125 Tablet] 1 each PO BID #20 tablet Prednisone [predniSONE 10 mg (6-Day Pack, 21 Tabs)] 10 mg PO .TAPER #1 tab.ds.pk Referrals: PRIMARY CARE, [Primary Care Provider] - 3-5 Days Time of Disposition: 11:09
--- NOTE | 2020-02-08 11:02 | XRay Report ---
SOFT TISSUE NECK 2 VIEWS HISTORY: Neck pain for 2 days COMPARISON: None. FINDINGS: Soft tissues of the neck are unremarkable. No evidence for mass or inflammation. Unremarkab le bony structures. The upper trachea appears widely patent. Signer Name: Agusto Ford Jr, MD Signed: 02/08/2020 10:58 AM Workstation Name: [id number]
== END 2020-02-08 11:41 | disposition home or self-care (01) ==
LOC: ED 07:39
DX: J02.9 Acute pharyngitis, unspecified (principal); H66.90 Otitis media, unspecified, unspecified ear; G43.909 Migraine, unspecified, not intractable, without status migrainosus; Z79.899 Other long term (current) drug therapy; Z98.890 Other specified postprocedural states
CPT/HCPCS: 70360; 96372; 99283; J1100